=== PATIENT | male | born 1980 | race Caucasian/White ===

== ENCOUNTER 2022-08-01 11:03 | Outpatient (REF) | payer BC, SELFPAY ==
[2022-08-01 11:15] LABS: MANUAL DIFF FLAG NO
[2022-08-01 11:50] LABS: Basophils Percent Auto 0.6 % (0-2); Eosinophils Absolute Auto 0.1 X10*3/uL (0.0-0.4); Eosinophils Percent Auto 1.8 % (0-4); Hematocrit 44.9 % (42.0-52.0); Hemoglobin 15.7 g/dl (14.0-18.0); Imm Gran Abs Auto 0.01 X10*3/uL (0.00-0.03); Imm Gran Pct Auto 0.2 % (0.0-0.4); Lymphocytes Absolute Auto 2.3 X10*3/uL (1.2-4.9); Lymphocytes Percent Auto 35.9 % (20-40); Mean Corpuscular Hemoglobin 29.8 pg (27.0-33.0); Mean Corpuscular Volume 85.4 fL (80.0-98.0); Mean Platelet Volume 10.1 fL (9.4-12.4); Monocytes Absolute Auto 0.8 X10*3/uL (0.1-1.2); Monocytes Percent Auto 11.8 % (2-11); Neutrophils Absolute Auto 3.2 x10*3/uL (2.0-8.3); Neutrophils Percent Auto 49.7 % (45-73); Platelet Count 239 X10*3/uL (160-400); Red Blood Count 5.26 X10*6/uL (4.60-5.80); Red Cell Distribution Width 11.9 % (11.0-16.0); White Blood Count 6.5 X10*3/uL (4.8-10.8)
[2022-08-01 12:35] LABS: Alanine Aminotransferase 29 U/L (0-40); Albumin Level 4.1 g/dL (3.5-5.0); Alkaline Phosphatase 77 U/L (39-117); Anion Gap 13 (12-20); Aspartate Amino Transferase 22 U/L (5-37); Bilirubin Total 1.1 mg/dL (0.0-1.0); Blood Urea Nitrogen 12 mg/dL (9-16); Calcium 9.2 mg/dL (8.4-10.2); Carbon Dioxide 26 mmol/L (22-29); Chloride 105 mmol/L (96-108); Cholesterol 157 mg/dL; Estimated Glomerular Filt Rate > 60; Glucose Random 93 mg/dL (60-115); HDL Cholesterol 33 mg/dL; LDL Cholesterol Calculated 92 mg/dl; Potassium 4.3 mmol/L (3.3-5.1); Sodium 140 mmol/L (135-145); Total Protein 6.8 g/dL (6.5-8.0); Triglycerides 161 mg/dL
== END 2022-08-01 11:04 | disposition home or self-care (01) ==
LOC: HO.LAB 11:03
PROVIDERS: Visit Provider Physician Assistant
DX: Z00.00 Encounter for general adult medical examination without abnormal findings (principal)
CPT/HCPCS: 36415; 80053; 80061; 85025

== ENCOUNTER 2023-08-10 15:30 | Outpatient (REF) | payer BC, SELFPAY ==
[2023-08-10 19:22] LABS: Appearance Urine Clear; Color Urine Yellow; Glucose Urine UA Negative (Negative); Leukocyte Esterase Urine Small (1+) (Negative); Nitrite Urine Negative (Negative); PH 6.5 (5.0-9.0); UMIC TRIGGER UACC YES; Urine Blood Negative (Negative); Urine Ketones Negative (Negative); Urine Protein Negative (Neg-Trace)
[2023-08-10 19:32] LABS: Bacteria Urine None Seen (None Seen); Hyaline Casts Urine 0-2 /LPF (0-2); RBC Urine 0-2 /HPF (0-2); Squamous Epithelial Cell Urine 0-2 /HPF (0-2); UACC Culture Trigger YES; WBC Urine 0-5 /HPF (0-5)
== END 2023-08-10 15:31 | disposition home or self-care (01) ==
LOC: HO.MANLNP 15:30
PROVIDERS: Visit Provider Physician Assistant
DX: R30.0 Dysuria (principal)
CPT/HCPCS: 81001; 81003; 87086

== ENCOUNTER 2023-08-25 10:20 | Outpatient (REF) | payer BC, SELFPAY ==
[2023-08-25 10:39] LABS: MANUAL DIFF FLAG NO
[2023-08-25 11:23] LABS: Basophils Absolute Auto 0.1 X10*3/uL (0.0-0.2); Basophils Percent Auto 0.7 % (0-2); Eosinophils Absolute Auto 0.2 X10*3/uL (0.0-0.4); Eosinophils Percent Auto 1.9 % (0-4); Hematocrit 44.4 % (42.0-52.0); Hemoglobin 15.4 g/dl (14.0-18.0); Imm Gran Abs Auto 0.05 X10*3/uL (0.00-0.03); Imm Gran Pct Auto 0.5 % (0.0-0.4); Lymphocytes Absolute Auto 2.9 X10*3/uL (1.2-4.9); Lymphocytes Percent Auto 28.1 % (20-40); Mean Corpuscular HGB Conc 34.7 g/dl (31.0-36.0); Mean Corpuscular Hemoglobin 28.9 pg (27.0-33.0); Mean Corpuscular Volume 83.3 fL (80.0-98.0); Mean Platelet Volume 10.2 fL (9.4-12.4); Monocytes Absolute Auto 0.9 X10*3/uL (0.1-1.2); Monocytes Percent Auto 8.9 % (2-11); Neutrophils Absolute Auto 6.1 x10*3/uL (2.0-8.3); Neutrophils Percent Auto 59.9 % (45-73); Platelet Count 292 X10*3/uL (160-400); Red Blood Count 5.33 X10*6/uL (4.60-5.80); Red Cell Distribution Width 12.6 % (11.0-16.0); White Blood Count 10.2 X10*3/uL (4.8-10.8)
[2023-08-25 11:30] LABS: Estimated Average Glucose 94 mg/dL; Hemoglobin A1c % 4.9 % (<6.0)
[2023-08-25 12:02] LABS: Alanine Aminotransferase 22 U/L (0-40); Albumin Level 4.2 g/dL (3.5-5.0); Alkaline Phosphatase 83 U/L (39-117); Anion Gap 12 (12-20); Aspartate Amino Transferase 21 U/L (5-37); Bilirubin Total 1.1 mg/dL (0.0-1.0); Blood Urea Nitrogen 12 mg/dL (9-16); Calcium 9.2 mg/dL (8.4-10.2); Carbon Dioxide 31 mmol/L (22-29); Chloride 102 mmol/L (96-108); Cholesterol 168 mg/dL (<200); Estimated Glomerular Filt Rate > 60; Glucose Random 91 mg/dL (60-115); HDL Cholesterol 34 mg/dL (>40); LDL Cholesterol Calculated 100 mg/dL (<100); Potassium 3.4 mmol/L (3.3-5.1); Sodium 142 mmol/L (135-145); Total Protein 7.7 g/dL (6.5-8.0); Triglycerides 170 mg/dL (<150)
[2023-08-25 12:16] LABS: Vitamin D 25-OH Total 129.1 ng/mL (>30)
[2023-08-25 12:52] LABS: CT PCR NOT DETECTED (Not Detect.); NG PCR NOT DETECTED (Not Detect.)
[2023-08-27 04:01] LABS: Syphilis Screen Nonreactive (Nonreactive)
[2023-08-27 04:33] LABS: HBS Num1 9.22 mIU/mL (0-7.99); HBsAGNum1 0.33 S/CO (0.00-0.99); HIV AB/AG Nonreactive (Nonreactive); HIV Num 1 0.04 S/CO (0.00-0.99); Hepatitis A Antibody IgM 0.19 Index (0-0.79); Hepatitis B Core Antibody Nonreactive (Nonreactive); Hepatitis B Surface Antigen Negative (Negative); ~HepC Num1 0.16 S/CO (0.00-0.79); ~Hepatitis A Antibody IgM Nonreactive (Nonreactive); ~Hepatitis C Antibody Nonreactive (Nonreactive)
[2023-08-27 05:18] LABS: HBS Num2 10.21 mIU/mL (0-7.99); HBS Num3 9.61 mIU/mL (0-7.99); ~Hepatitis B Surface Antibody GRAYZONE (Nonreactive)
== END 2023-08-25 10:21 | disposition home or self-care (01) ==
LOC: HO.LAB 10:20
PROVIDERS: PCP Internal Medicine; Visit Provider Physician Assistant
DX: Z00.00 Encounter for general adult medical examination without abnormal findings (principal); Z11.4 Encounter for screening for human immunodeficiency virus [HIV]; Z13.6 Encounter for screening for cardiovascular disorders; Z20.2 Contact with and (suspected) exposure to infections with a predominantly sexual mode of transmission
CPT/HCPCS: 0353U; 36415; 80053; 80061; 82306; 83036; 85025; 86704; 86706; 86709; 86780; 86803; 87340; 87389

== ENCOUNTER 2023-10-08 20:24 | Emergency (ER) | payer BC, SELFPAY ==
--- NOTE | ~2023-10-08 | CT_ITS ---
EXAMINATION: CT head/brain wo IV con CLINICAL INFORMATION: Reason for Exam hypertenstion. headache COMPARISON: None. TECHNIQUE: Contiguous axial imaging was performed from the skull base to vertex without intravenous contrast. Sagittal and coronal reformatted images were obtained. This CT examination was performed using dose optimization techniques as appropriate, variously including the following: * Automated exposure control * Adjustment of mA and/or kV according to patient size (this includes techniques or standardized protocols for targeted exams where dose is matched to indication/reason for exam; i.e. extremities or head) Use of iterative reconstruction technique DLP: 784.34 mGy-cm mGy-cm FINDINGS: There is no evidence of acute intracranial hemorrhage. No mass-effect or ventricular shift is noted. No acute, territorial loss of cruz-white differentiation. Partially empty sella turcica. The ventricles and sulci are appropriate in size and configuration for the patient's stated age. No depressed calvarial fracture. Left maxillary sinus mucus retention cyst/polyp with mild to moderate polypoid mucosal thickening throughout the paranasal sinuses. The mastoid air cells are clear. Sebaceous/epidermal inclusion cyst overlying the left posterior calvarium. CT/CT head/brain wo IV con IMPRESSION: No acute intracranial hemorrhage, mass effect, or midline shift. Partially empty sella turcica.
[2023-10-08 21:12] VITALS: BP 177/109; PULSE 77; RESP 14; TEMP 36.3; O2SAT 97; BMI 39.3
--- NOTE | 2023-10-08 21:18 | ECG_ITS ---
Test Reason : HYPERTENSION Blood Pressure : / mmHG Vent. Rate : 069 BPM Atrial Rate : 069 BPM P-R Int : 150 ms QRS Dur : 094 ms QT Int : 400 ms P-R-T Axes : 024 008 039 degrees QTc Int : 428 ms Normal sinus rhythm Normal ECG No previous ECGs available Referred By: Generic ED Physician Electronically Signed By:Ran Connelly
[2023-10-08 21:34] LABS: MANUAL DIFF FLAG NO
[2023-10-08 21:37] LABS: Basophils Absolute Auto 0.1 X10*3/uL (0.0-0.2); Basophils Percent Auto 0.4 % (0-2); Eosinophils Absolute Auto 0.1 X10*3/uL (0.0-0.4); Eosinophils Percent Auto 0.5 % (0-4); Hematocrit 46.3 % (42.0-52.0); Hemoglobin 16.9 g/dl (14.0-18.0); Imm Gran Abs Auto 0.05 X10*3/uL (0.00-0.03); Imm Gran Pct Auto 0.4 % (0.0-0.4); Lymphocytes Percent Auto 15.1 % (20-40); Mean Corpuscular HGB Conc 36.5 g/dl (31.0-36.0); Mean Corpuscular Hemoglobin 29.9 pg (27.0-33.0); Mean Corpuscular Volume 81.9 fL (80.0-98.0); Mean Platelet Volume 10.1 fL (9.4-12.4); Monocytes Absolute Auto 0.8 X10*3/uL (0.1-1.2); Monocytes Percent Auto 6.3 % (2-11); Neutrophils Absolute Auto 10.4 x10*3/uL (2.0-8.3); Neutrophils Percent Auto 77.3 % (45-73); Platelet Count 270 X10*3/uL (160-400); Red Blood Count 5.65 X10*6/uL (4.60-5.80); Red Cell Distribution Width 12.6 % (11.0-16.0); White Blood Count 13.4 X10*3/uL (4.8-10.8)
[2023-10-08 21:53] LABS: Alanine Aminotransferase 24 U/L (0-40); Albumin Level 4.5 g/dL (3.5-5.0); Alkaline Phosphatase 89 U/L (39-117); Anion Gap 16 (12-20); Aspartate Amino Transferase 21 U/L (5-37); Blood Urea Nitrogen 12 mg/dL (9-16); Calcium 10.6 mg/dL (8.4-10.2); Carbon Dioxide 26 mmol/L (22-29); Chloride 100 mmol/L (96-108); Estimated Glomerular Filt Rate > 60; Glucose Random 117 mg/dL (60-115); Potassium 3.5 mmol/L (3.3-5.1); Sodium 138 mmol/L (135-145); Total Protein 8.1 g/dL (6.5-8.0)
--- NOTE | 2023-10-09 00:58 | ED.GENADULT ---
HPI - General Adult General Chief complaint: Headache Stated complaint: elevated bp 190/130, migraine Time Seen by Provider: 10/09/23 00:47 Source: patient Mode of arrival: ambulatory Limitations: no limitations History of Present Illness HPI narrative: 42-year-old male history of high blood pressure presents ED for headache with elevated blood pressure. Patient states primary care provider has had trouble the past couple months control in his high blood pressure. Patient states this morning he woke up with headache and blood pressure was systolic 230/130. Patient states his prior called him today his medications sent some new prescriptions. Patient's 2nd systolic blood pressure was 210 during the day. Before coming to the ED blood pressure systolic was 190. Related Data Allergies Allergy/AdvReac Type Severity Reaction Status Date / Time No Known Allergies Allergy Verified 10/08/23 21:16 Review of Systems Review of Systems: headache and hypertension Yes all other systems are reviewed and are negative [facility] Social History Social History (System 05/22/23 @ 11:29 by Kenzie Landers) Advance Directives: No Advance Directives Information Provided: No Do you have a plan to hurt others: No Plan Physical Exam ED Vital Signs: Vital Signs - 24 hr 10/08/23 21:12 10/09/23 01:01 10/09/23 02:31 Temperature 97.3 F Pulse Rate 77 72 66 Respiratory Rate 14 10 L 15 Blood Pressure 177/109 H 173/102 H 140/87 H Pulse Oximetry 97 96 98 Oxygen Delivery Method Room Air Room Air Room Air BMI result Body Mass Index 39.3 Const General: cooperative, healthy appearing, comfortable, no acute distress, well developed, alert and awake Orientation/consciousness: oriented to person, oriented to place, oriented to time and patient oriented x3 HENMT Head: Yes normal to inspection, Yes No palpable skull fracture present, Yes normocephalic and Yes atraumatic Eyes General: appearance normal, both eyes and all related structures Neck Neck: Yes normal visual inspection, Yes full ROM, Yes no lymphadenopathy, Yes no meningeal signs, Yes trachea midline, Yes supple, No anterior neck swelling and No tender Chest Chest palpation & inspection: normal inspection of the chest and normal palpation of entire chest wall Resp Effort & Inspection: normal respiratory effort and able to speak in complete sentences Auscultation: clear to auscultation bilaterally Cardio Jugular venous distension: no JVD Heart sounds: S1 normal heart sound present and S2 normal heart sound present GI Inspection: Yes normal to inspection Palpation (GI): Soft to palpation, not firm, nontender, no guarding and not rigid General: No CVA tenderness and Yes no CVA tenderness Back/Spine/Pelvis Back: no CVA tenderness, No CVA tenderness and No back tenderness Skin General skin exam: no rashes or lesions noted, elasticity normal and turgor normal Neuro General: oriented to person, oriented to place, oriented to time, patient oriented x3, gait normal, tone normal, moves all extremities, Normal light touch and pain sensation, no meningeal signs, no focal motor deficits, CN's II-XI intact bilaterally and normal sensation to monofilament NIH Stroke Scale Internal: Initial- Upon Arrival Level of Consciousness: Alert Level of Consciousness Questions: Answers both questions correctly Level of Consciousness Commands: Performs both tasks correctly Best Gaze: Normal Visual: No visual loss Facial Palsy: Normal Motor Arm (Right): No drift Motor Arm (Left): No drift Motor Leg (Right): No drift Motor Leg (Left): No drift Limb Ataxia: Absent Sensory: Normal Best Language: No aphasia Dysarthia: Normal Extinction and Inattention: No abnormality Score: 0 Medications Administered Discontinued Medications Generic Name Dose Route Start Last Admin Trade Name Freq PRN Reason Stop Dose Admin Acetaminophen 975 mg 10/09/23 00:55 10/09/23 01:05 Acetaminophen 325 Mg Tablet PO 10/09/23 00:56 975 mg ONCE ONE Administration Medical Decision Making Medical Decision Making MDM Narrative: 42 yold male presents to the ED for headache and elevated blood pressure. Negative for signs of stroke. Troponin added to labs. Head CT scan ordered. Will order repeat blood pressure 3:19am; CT scan negative for acute bleed or stroke. Blood pressure improved to 1 40/70 without any medications in the ED. Blood pressure improved during the day with new mediciations prescribed by PCP. Headache resolved with Tylenol. Blood pressure was improving during the day due to new medications prior by primary care provider. Patient informed to continue being compliant with primary care medications for high blood pressure. Patient informed to record his blood pressure 3 times a day. Patient's troponin negative after symptoms over 10 hours. Patient educated time and informed to return to ED if he has them Differential Diagnosis Differential Diagnoses: The differential diagnosis associated with the presentation includes (Hypertensive headache) Admission/Observation Consideration of admission/observation: Escalation of care including admission/observation considered Lab Data [facility] Lab Attestation statement: I reviewed the patient's lab results. 10/08/23 21:27 10/08/23 21:27 Labs: Lab Results 10/08/23 10/09/23 Range/Units 21:27 01:04 WBC 13.4 H (4.8-10.8) X10*3/uL RBC 5.65 (4.60-5.80) X10*6/uL Hgb 16.9 (14.0-18.0) g/dl Hct 46.3 (42.0-52.0) % MCV 81.9 (80.0-98.0) fL MCH 29.9 (27.0-33.0) pg MCHC 36.5 H (31.0-36.0) g/dl RDW 12.6 (11.0-16.0) % Plt Count 270 (160-400) X10*3/uL MPV 10.1 (9.4-12.4) fL Immature Gran % (Auto) 0.4 (0.0-0.4) % Neut % (Auto) 77.3 H (45-73) % Lymph % (Auto) 15.1 L (20-40) % [place] % (Auto) 6.3 (2-11) % Eos % (Auto) 0.5 (0-4) % Baso % (Auto) 0.4 (0-2) % Lymph # (Auto) 2.0 (1.2-4.9) X10*3/uL [place] # (Auto) 0.8 (0.1-1.2) X10*3/uL Eos # (Auto) 0.1 (0.0-0.4) X10*3/uL Baso # (Auto) 0.1 (0.0-0.2) X10*3/uL Abs Immat Gran (auto) 0.05 H (0.00-0.03) X10*3/uL Absolute Neuts (auto) 10.4 H (2.0-8.3) x10*3/uL Absolute Nucleated RBC 0.000 (0.0-0.012) X10*3/uL Nucleated RBC % (auto) 0.0 (0.0-0.2) /100WBC Sodium 138 (135-145) mmol/L Potassium 3.5 (3.3-5.1) mmol/L Chloride 100 (96-108) mmol/L Carbon Dioxide 26 (22-29) mmol/L Anion Gap 16 (12-20) BUN 12 (9-16) mg/dL Creatinine 1.11 (0.5-1.4) mg/dL Estim Creat Clear Calc 117.0 Estimated GFR > 60 Random Glucose 117 H (60-115) mg/dL Calcium 10.6 H D (8.4-10.2) mg/dL Total Bilirubin 1.0 (0.0-1.0) mg/dL AST 21 (5-37) U/L ALT 24 (0-40) U/L Alkaline Phosphatase 89 (39-117) U/L Troponin I High Sens < 2.7 (<3.5-35.0) ng/L Total Protein 8.1 H (6.5-8.0) g/dL Albumin 4.5 (3.5-5.0) g/dL Independent Interpretation I performed an independent interpretation of an: EKG (normal sinus rhythm. negative stEMI) and CT Scan Radiology Impression Discussion of test interpretation with radiology: I have reviewed the radiologist's reading. Independent Historian Clinical information obtained from an independent historian. History obtained from or confirmed by: Other (patient) External Record Review External record reviewed: Other (prior vistis) Discharge Plan Discharge Clinical Impression: Headache, Hypertension Patient Disposition: Home, Self-Care Instructions: Hypertension (ED) Additional Instructions: Return to the ED immediately for any headache, loss of vision, slurred speech, facial droop, paralysis of extremities, chest pain, shortness of breath, dizzinness, abdominal pain, or any other concerning symptoms. Recommend being compliant with the hypertensive medication that was prescribed to you by primary care provider today. Recommend recording you're blood pressure 3 times a day dysuria primary care provider. Stand Alone Forms: Work/School Release Interventions: ED Discharge Assessment Last Done: 10/09/23 04:12 Discharge Date/Time: 10/09/23 04:13 Print Language: Macedonian
[2023-10-09 01:01] VITALS: BP 173/102; PULSE 72; RESP 10; O2SAT 96
[2023-10-09] MEDS: Acetaminophen 325 MG TABLET 975 MG PO (01:05)
[2023-10-09 01:35] LABS: Troponin-I High Sensitivity < 2.7 ng/L (<3.5-35.0)
[2023-10-09 02:31] VITALS: BP 140/87; PULSE 66; RESP 15; O2SAT 98
[2023-10-09 04:12] VITALS: BP 140/87; PULSE 66; RESP 15; TEMP 36.9; O2SAT 98
== END 2023-10-09 04:13 | disposition home or self-care (01) ==
PROVIDERS: Physician Assistant; Emergency Provider Emergency Medicine; PCP Internal Medicine
DX: R51.9 Headache, unspecified (principal); I10 Essential (primary) hypertension; Z79.899 Other long term (current) drug therapy
CPT/HCPCS: 36415; 70450; 80053; 84484; 85025; 93005; 99284

== ENCOUNTER → 2023-10-08 21:18 | Outpatient (BNV) | payer BC, SELFPAY | PROVIDERS: Emergency Provider Emergency Medicine; PCP Internal Medicine; Visit Provider Internal Medicine Cardiovascular Disease | DX: I10 Essential (primary) hypertension (principal) | CPT/HCPCS: 93010 ==

== ENCOUNTER 2023-10-17 15:51 | Emergency (ER) | payer BC, SELFPAY ==
--- NOTE | ~2023-10-17 | XR_ITS ---
EXAMINATION: XR CHEST CLINICAL INFORMATION: Hypertension COMPARISON: None available. TECHNIQUE: 2 views of the chest were obtained. FINDINGS: No significant abnormality is noted involving the heart, lungs, mediastinum, bony thorax or soft tissues. XR/XR chest 2V IMPRESSION: Unremarkable examination.
[2023-10-17 16:09] VITALS: BP 189/103; PULSE 89; RESP 16; TEMP 36.8; O2SAT 96; BMI 39.7
--- NOTE | 2023-10-17 16:10 | ED_ITS ---
HPI - General Adult General Chief complaint: Recheck/Abnormal Lab/Rx Stated complaint: high bp, ref by pcp Time Seen by Provider: 10/18/23 00:11 Source: patient Mode of arrival: ambulatory Limitations: no limitations History of Present Illness HPI narrative: Patient comes to the emergency room complaining of high blood pressure. Patient states that he has had multiple medications. Patient states that he used to take losartan full-dose until it stopped working. Then the patient's primary care physician tried hydrochlorothiazide, then amlodipine, labetalol, all without significant effect. The labetalol was working but patient could not tolerate the side effects. Patient states that now he is on spironolactone daily and today he started taking prazosin 1 mg daily. Laying a mild headache for which she took Tylenol. Patient states he had a CT scan done about a week ago for the same reason, headache and hypertension. Related Data Previous Rx's ?Medication ?Instructions ?Recorded prazosin 1 mg capsule 1 mg PO TID 4 weeks #84 caps 10/18/23 Allergies Allergy/AdvReac Type Severity Reaction Status Date / Time No Known Allergies Allergy Verified 10/17/23 16:11 Review of Systems 2 Review of Systems: Constitutional : No Weight loss, No Fever, No Chills, No Night Sweats, No Fatigue, No Malaise ENT/Mouth : No Hearing loss, No Ear Pain, No Nasal Congestion, No Sinus Pain, No Hoarseness, No sore throat, No Rhinorrhea, No Swallowing Difficulty Eyes: No Eye Pain, No Swelling, No Redness, No Foreign Body, No Discharge, No Vision Changes Cardiovascular : No Chest Pain, No SOB, No Dyspnea on Exertion, No Orthopnea, No Edema, No Palpitations, complaining of high blood pressure Respiratory : No Cough, No Sputum, No Wheezing, No Smoke Exposure, No Dyspnea Gastrointestinal : No Nausea, No Vomiting, No Diarrhea, No Constipation, No abdominal Pain, No Hematochezia, No Melena Genitourinary : no irregular bleeding, No Dysuria, No Urinary Frequency, No Hematuria, No Urinary Incontinence, No Urgency, No Flank Pain, No Urinary Flow Changes, No Hesitancy Musculoskeletal : No joint pain, No Myalgias, No Joint Swelling Skin : No Skin Lesions, No rash Neuro : No Weakness, No Numbness, No Paresthesias, No Loss of Consciousness, No Dizziness, mild Headache Psych : No Anxiety/Panic, No Depression, No SI/HI/AH/VH, No Social Issues, Heme/Lymph: No Bruising, No Bleeding,No Lymphadenopathy Endocrine : No Polyuria, No Polydipsia, No Temperature Intolerance [facility] Past Medical History Medical History ADD (attention deficit disorder) Hypertension Social History Social History (System 05/22/23 @ 11:29 by Kenzie Landers) Alcohol intake: never Smoked in Last 30 Days: No Use of substances other than those prescribed or required for medical reasons: No Advance Directives: No Advance Directives Information Provided: No Do you have a plan to hurt others: No Plan Physical Exam ED Vital Signs: Vital Signs - 24 hr 10/17/23 16:09 10/17/23 21:46 10/17/23 22:41 Temperature 98.3 F 97.3 F 98.9 F Pulse Rate 89 73 71 Respiratory Rate 16 18 16 Blood Pressure 189/103 H 197/109 H 184/104 H Pulse Oximetry 96 98 96 Oxygen Delivery Method Room Air Room Air Room Air 10/18/23 00:13 10/18/23 00:47 10/18/23 01:51 Temperature 98.1 F 98.2 F Pulse Rate 67 67 74 Respiratory Rate 16 16 Blood Pressure 167/99 H 167/99 H 168/97 H Pulse Oximetry 99 98 Oxygen Delivery Method Room Air 10/18/23 02:27 10/18/23 02:48 10/18/23 03:38 Temperature 98.8 F Pulse Rate 70 74 Respiratory Rate 16 Blood Pressure 168/97 H 179/96 H 158/91 H Pulse Oximetry 97 Oxygen Delivery Method Room Air BMI result Body Mass Index 39.7 Const Other: Appearance: Alert. Oriented X3. No acute distress. Eyes: Pupils equal, round and reactive to light. ENT: Pharynx normal. Neck: Normal inspection. Neck supple. No lymph nodes noted. No crepitus CVS: Normal heart rate and rhythm. Pulses normal. Normal S1 and S2 Respiratory: No respiratory distress. Breath sounds normal. No Wheezing. No rales Abdomen: Soft and nontender. No rigidity. No distention. Skin: Skin warm and dry. Normal skin color. Normal skin turgor. Extremities: No lower extremity edema. No Lacerations. No Rash Neuro: Oriented X 3. No motor deficit. No sensory deficit. Moving all extremities. No slurred speech. CN 2 through 12 grossly intact Psych: calm, cooperative, normal affect Course Course Course Narrative: This is a rapid medical exam performed by Robert Davis NP: Additional HPI, ROS, PE not included below will be deferred to primary provider. Patient is a 42-year-old male with history of HTN presenting to ED from PCP office for persistent HTN. Started on prazosin today, BP remained elevated. BP here 189/103. Complains of headache, denies changes in vision or chest pain. Plan: EKG, labs, CXR Medications Administered Discontinued Medications Generic Name Dose Route Start Last Admin Trade Name Freq PRN Reason Stop Dose Admin Acetaminophen 650 mg 10/17/23 22:21 10/17/23 22:24 Acetaminophen 325 Mg Tablet PO 10/17/23 22:22 650 mg ONCE ONE Administration Diltiazem HCl 60 mg 10/18/23 00:23 10/18/23 00:47 Diltiazem Hcl 60 Mg Tablet PO 10/18/23 00:24 60 mg ONCE ONE Administration Protocol Hydralazine HCl 50 mg 10/18/23 01:57 10/18/23 02:27 Hydralazine Hcl 50 Mg Tablet PO 10/18/23 01:58 50 mg ONCE ONE Administration Protocol Nitroglycerin 1 inch 10/18/23 02:51 10/18/23 03:00 Nitroglycerin 2 % Oint 1 Gm Packet TRANSDERMA 10/18/23 02:52 1 inch ONCE ONE Administration Medical Decision Making Medical Decision Making [facility] Narrative: -my interpretation of EKG: Normal sinus rhythm, heart rate 89, no ST segment depression or elevation, no T-wave inversion, QTC 442 -my interpretation of labs: Normal hematology, normal chemistry, troponins x2 negative. -I reviewed patient's CT scan from 1 week ago, patient's CT scan was negative for intracranial bleed -patient's blood pressure 189/103, then 167/99. Patient received 1 dose of p.o. Cardizem -discussed with the patient that prazosin taking once they can cause rebound hypertension, instructed to increase prazosin to 3 times a day, 1 mg each dose -I consider repeating a CT scan. However, patient states that he took Tylenol and feels better patient has no neurological deficits -patient states that his primary care physician ordered a renal ultrasound to rule out renal artery stenosis, exam pending -patient's blood pressure did not improve much, patient needed an additional patch of nitroglycerin 1 in -blood pressure was slowly in the 170s, patient received 1 dose of hydralazine 50 mg p.o.. -blood pressure check 158/91. Overall patient feeling better, no chest pain or shortness of breath. Differential Diagnosis Differential Diagnoses: The differential diagnosis associated with the presentation includes (Hypertensive urgency, hypertensive emergency, tension headache) Admission/Observation Consideration of admission/observation: Escalation of care including admission/observation considered (Can patient's symptoms and high blood pressure, admission/observation considered) Lab Data MDM Lab Attestation statement: I reviewed the patient's lab results. 10/17/23 16:40 10/17/23 16:40 Labs: Lab Results 10/17/23 10/17/23 Range/Units 16:40 22:15 WBC 7.8 (4.8-10.8) X10*3/uL RBC 5.31 (4.60-5.80) X10*6/uL Hgb 15.7 (14.0-18.0) g/dl Hct 43.9 (42.0-52.0) % MCV 82.7 (80.0-98.0) fL MCH 29.6 (27.0-33.0) pg MCHC 35.8 (31.0-36.0) g/dl RDW 12.6 (11.0-16.0) % Plt Count 245 (160-400) X10*3/uL MPV 10.0 (9.4-12.4) fL Immature Gran % (Auto) 0.3 (0.0-0.4) % Neut % (Auto) 57.2 (45-73) % Lymph % (Auto) 25.3 (20-40) % [place] % (Auto) 12.3 H (2-11) % Eos % (Auto) 4.1 H (0-4) % Baso % (Auto) 0.8 (0-2) % Lymph # (Auto) 2.0 (1.2-4.9) X10*3/uL [place] # (Auto) 1.0 (0.1-1.2) X10*3/uL Eos # (Auto) 0.3 (0.0-0.4) X10*3/uL Baso # (Auto) 0.1 (0.0-0.2) X10*3/uL Abs Immat Gran (auto) 0.02 (0.00-0.03) X10*3/uL Absolute Neuts (auto) 4.5 (2.0-8.3) x10*3/uL Absolute Nucleated RBC 0.000 (0.0-0.012) X10*3/uL Nucleated RBC % (auto) 0.0 (0.0-0.2) /100WBC PT 12.2 (11.1-13.3) SEC INR 1.0 (0.9-1.1) Sodium 139 (135-145) mmol/L Potassium 3.6 (3.3-5.1) mmol/L Chloride 104 (96-108) mmol/L Carbon Dioxide 24 (22-29) mmol/L Anion Gap 15 (12-20) BUN 12 (9-16) mg/dL Creatinine 1.15 (0.5-1.4) mg/dL Estim Creat Clear Calc 113.5 Estimated GFR > 60 Random Glucose 89 (60-115) mg/dL Calcium 9.6 D (8.4-10.2) mg/dL Total Bilirubin 0.7 (0.0-1.0) mg/dL AST 20 (5-37) U/L ALT 24 (0-40) U/L Alkaline Phosphatase 85 (39-117) U/L Troponin I High Sens < 2.7 < 2.7 (<3.5-35.0) ng/L Total Protein 7.7 (6.5-8.0) g/dL Albumin 4.3 (3.5-5.0) g/dL Independent Interpretation I performed an independent interpretation of an: EKG and Plain X-Ray Radiology Impression Discussion of test interpretation with radiology: I have reviewed the radiologist's reading. Radiologist Impression: FINDINGS: No significant abnormality is noted involving the heart, lungs, mediastinum, bony thorax or soft tissues. XR/XR chest 2V IMPRESSION: Unremarkable examination. Independent Historian Clinical information obtained from an independent historian. History obtained from or confirmed by: Spouse Chronic Conditions Patient?s care impacted by: Hypertension Critical Care Time Critical Care Time Critical Care Time: Yes Total Critical Care Time: 60 Attestation: I have personally provided critical care time. Time includes review of lab data, radiology results, discussion with consultants, and monitoring for potential decompensation. Intervention performed as documented. Discharge Plan Discharge Clinical Impression: Hypertension Patient Disposition: Home, Self-Care Instructions: Hypertension (ED) Additional Instructions: Please continue taking spironolactone as prescribed and take prazosin 1 mg 3 times a day. Please follow-up with your primary care physician tomorrow. If you have any worsening or new symptoms, please return to the emergency room or call 911 Prescriptions: New prazosin 1 mg capsule 1 mg PO TID 28 Days Qty: 84 0RF Referrals: Serge Moran MD [Primary Care Provider] - Print Language: Portuguese
--- NOTE | 2023-10-17 16:12 | ECG_ITS ---
Test Reason : hypertention Blood Pressure : / mmHG Vent. Rate : 089 BPM Atrial Rate : 089 BPM P-R Int : 144 ms QRS Dur : 092 ms QT Int : 364 ms P-R-T Axes : 037 014 040 degrees QTc Int : 442 ms Normal sinus rhythm Normal ECG When compared with ECG of 08-OCT-2023 21:23, No significant change was found Referred By: Melba Davis Electronically Signed By:JENNY ATKINS MD
[2023-10-17 16:45] LABS: MANUAL DIFF FLAG NO
[2023-10-17 16:52] LABS: Basophils Absolute Auto 0.1 X10*3/uL (0.0-0.2); Basophils Percent Auto 0.8 % (0-2); Eosinophils Absolute Auto 0.3 X10*3/uL (0.0-0.4); Eosinophils Percent Auto 4.1 % (0-4); Hematocrit 43.9 % (42.0-52.0); Hemoglobin 15.7 g/dl (14.0-18.0); Imm Gran Abs Auto 0.02 X10*3/uL (0.00-0.03); Imm Gran Pct Auto 0.3 % (0.0-0.4); Lymphocytes Percent Auto 25.3 % (20-40); Mean Corpuscular HGB Conc 35.8 g/dl (31.0-36.0); Mean Corpuscular Hemoglobin 29.6 pg (27.0-33.0); Mean Corpuscular Volume 82.7 fL (80.0-98.0); Monocytes Percent Auto 12.3 % (2-11); Neutrophils Absolute Auto 4.5 x10*3/uL (2.0-8.3); Neutrophils Percent Auto 57.2 % (45-73); Platelet Count 245 X10*3/uL (160-400); Red Blood Count 5.31 X10*6/uL (4.60-5.80); Red Cell Distribution Width 12.6 % (11.0-16.0); White Blood Count 7.8 X10*3/uL (4.8-10.8)
[2023-10-17 16:54] LABS: Prothrombin Time 12.2 SEC (11.1-13.3)
[2023-10-17 17:04] LABS: Alanine Aminotransferase 24 U/L (0-40); Albumin Level 4.3 g/dL (3.5-5.0); Alkaline Phosphatase 85 U/L (39-117); Anion Gap 15 (12-20); Aspartate Amino Transferase 20 U/L (5-37); Bilirubin Total 0.7 mg/dL (0.0-1.0); Blood Urea Nitrogen 12 mg/dL (9-16); Calcium 9.6 mg/dL (8.4-10.2); Carbon Dioxide 24 mmol/L (22-29); Chloride 104 mmol/L (96-108); Creatinine Clr Calc Pharmacy 113.5; Estimated Glomerular Filt Rate > 60; Glucose Random 89 mg/dL (60-115); Potassium 3.6 mmol/L (3.3-5.1); Sodium 139 mmol/L (135-145); Total Protein 7.7 g/dL (6.5-8.0)
[2023-10-17 17:14] LABS: Troponin-I High Sensitivity < 2.7 ng/L (<3.5-35.0)
[2023-10-17 21:46] VITALS: BP 197/109; PULSE 73; RESP 18; TEMP 36.3; O2SAT 98
[2023-10-17] MEDS: Acetaminophen 325 MG TABLET 650 MG PO (22:24)
[2023-10-17 22:41] VITALS: BP 184/104; PULSE 71; RESP 16; TEMP 37.2; O2SAT 96
[2023-10-17 22:41] LABS: Troponin-I High Sensitivity < 2.7 ng/L (<3.5-35.0)
[2023-10-18] VITALS (8 sets, daily range): BP systolic 158–179; BP diastolic 82–99; PULSE 67–77; RESP 16; TEMP 36.7–37.2; O2SAT 95–99
--- NOTE | 2023-10-18 00:38 | PC.NURSE ---
electrical plumbing supervisor called for cardizem 60 mg po
[2023-10-18] MEDS: dilTIAZem HCL 60 MG TABLET PO (00:47)
[2023-10-18] MEDS: hydrALAZINE HCl 50 MG TABLET PO (02:27)
[2023-10-18] MEDS: Nitroglycerin 2 % Oint 1 GM Packet 1 INCH TRANSDERMA (03:00)
== END 2023-10-18 04:32 | disposition home or self-care (01) ==
PROVIDERS: Registered Nurse Emergency; Emergency Provider Emergency Medicine; PCP Internal Medicine
DX: I10 Essential (primary) hypertension (principal); Z79.899 Other long term (current) drug therapy
CPT/HCPCS: 36415; 71046; 80053; 84484; 85025; 85610; 93005; 99283; 99285

== ENCOUNTER → 2023-10-17 16:12 | Outpatient (BNV) | payer BC, SELFPAY | PROVIDERS: Emergency Provider Emergency Medicine; PCP Internal Medicine; Visit Provider Internal Medicine Cardiovascular Disease | DX: I10 Essential (primary) hypertension (principal) | CPT/HCPCS: 93010 ==

== ENCOUNTER 2023-11-21 07:54 | Outpatient (REF) | payer BC, SELFPAY ==
--- NOTE | ~2023-11-21 | US_ITS ---
EXAMINATION: ULTRASOUND RENAL WITH DOPPLER CLINICAL INFORMATION: Hypertension. COMPARISON: None. TECHNIQUE: Real-time grayscale, color Doppler, and duplex Doppler evaluation of the kidneys and renal vasculature was performed. Exam considered mildly limited by body habitus by the performing talent acquisition sourcer. FINDINGS: RENAL MEASUREMENTS: Right: 11.8 x 6.4 x 4.3 cm (Sag x AP x TV) Left: 12.6 x 6.4 x 4.3 cm (Sag x AP x TV) The renal parenchyma appears normal. No hydronephrosis or nephrolithiasis. DOPPLER INTERROGATION: AORTA: Mid aorta: 145 cm/sec RIGHT MAIN RENAL ARTERY: Proximal: 107 cm/sec Mid: 143 cm/sec Distal: 91 cm/sec LEFT MAIN RENAL ARTERY: Proximal: 56 cm/sec Mid: 74 cm/sec Distal: 41 cm/sec RENAL-AORTIC RATIO (RAR): Right: Not calculated due to mid aortic velocity outside of range 40-100 cm/s making RAR inaccurate. Left: Not calculated due to mid aortic velocity outside of range 40-100 cm/s making RAR inaccurate. SEGMENTAL RESISTIVE INDICES: Right: 0.58-0.68 Left: 0.63-0.72 RENAL VEINS: Right: Patent with normal waveform. Left: Patent with normal waveform. US/US renal BI IMPRESSION: Mildly limited examination due to body habitus. No evidence of hemodynamically significant renal artery stenosis. Normal-appearing kidneys.
--- NOTE | ~2023-11-21 | US_ITS ---
EXAMINATION: ULTRASOUND RENAL WITH DOPPLER CLINICAL INFORMATION: Hypertension. COMPARISON: None. TECHNIQUE: Real-time grayscale, color Doppler, and duplex Doppler evaluation of the kidneys and renal vasculature was performed. Exam considered mildly limited by body habitus by the performing carcass trimmer. FINDINGS: RENAL MEASUREMENTS: Right: 11.8 x 6.4 x 4.3 cm (Sag x AP x TV) Left: 12.6 x 6.4 x 4.3 cm (Sag x AP x TV) The renal parenchyma appears normal. No hydronephrosis or nephrolithiasis. DOPPLER INTERROGATION: AORTA: Mid aorta: 145 cm/sec RIGHT MAIN RENAL ARTERY: Proximal: 107 cm/sec Mid: 143 cm/sec Distal: 91 cm/sec LEFT MAIN RENAL ARTERY: Proximal: 56 cm/sec Mid: 74 cm/sec Distal: 41 cm/sec RENAL-AORTIC RATIO (RAR): Right: Not calculated due to mid aortic velocity outside of range 40-100 cm/s making RAR inaccurate. Left: Not calculated due to mid aortic velocity outside of range 40-100 cm/s making RAR inaccurate. SEGMENTAL RESISTIVE INDICES: Right: 0.58-0.68 Left: 0.63-0.72 RENAL VEINS: Right: Patent with normal waveform. Left: Patent with normal waveform. US/US renal doppler IMPRESSION: Mildly limited examination due to body habitus. No evidence of hemodynamically significant renal artery stenosis. Normal-appearing kidneys.
== END 2023-11-21 07:55 | disposition home or self-care (01) ==
LOC: HO.US 07:54
PROVIDERS: PCP Internal Medicine; Visit Provider Physician Assistant
DX: I10 Essential (primary) hypertension (principal); I1A.0 Resistant hypertension
CPT/HCPCS: 76775; 93975

== ENCOUNTER 2024-04-30 10:02 | Outpatient (REF) | payer BC, SELFPAY ==
[2024-04-30 11:00] LABS: Basophils Percent Auto 0.3 % (0-2); Eosinophils Absolute Auto 0.1 X10*3/uL (0.0-0.4); Eosinophils Percent Auto 1.4 % (0-4); Hematocrit 44.5 % (42.0-52.0); Imm Gran Abs Auto 0.03 X10*3/uL (0.00-0.03); Imm Gran Pct Auto 0.3 % (0.0-0.4); Lymphocytes Absolute Auto 4.2 X10*3/uL (1.2-4.9); Lymphocytes Percent Auto 44.3 % (20-40); MANUAL DIFF FLAG NO; Mean Corpuscular Hemoglobin 30.1 pg (27.0-33.0); Mean Corpuscular Volume 83.8 fL (80.0-98.0); Mean Platelet Volume 9.9 fL (9.4-12.4); Monocytes Percent Auto 10.1 % (2-11); Neutrophils Absolute Auto 4.1 x10*3/uL (2.0-8.3); Neutrophils Percent Auto 43.6 % (45-73); Platelet Count 232 X10*3/uL (160-400); Red Blood Count 5.31 X10*6/uL (4.60-5.80); Red Cell Distribution Width 12.5 % (11.0-16.0); White Blood Count 9.4 X10*3/uL (4.8-10.8)
[2024-04-30 11:48] LABS: Alanine Aminotransferase 23 U/L (0-40); Albumin Level 4.1 g/dL (3.5-5.0); Alkaline Phosphatase 110 U/L (39-117); Aspartate Amino Transferase 23 U/L (5-37); Bilirubin Total 0.7 mg/dL (0.0-1.0); Blood Urea Nitrogen 13 mg/dL (9-16); Estimated Glomerular Filt Rate > 60; Glucose Random 103 mg/dL (60-115); Iron 50 mcg/dL (45-160); Percent Iron Saturation 18 % (15-50); Total Iron Binding Capacity 281 mcg/dL (228-428); Total Protein 7.2 g/dL (6.5-8.0); Unsaturated Iron Binding 231 ug/dL
[2024-04-30 11:53] LABS: Free T4 (Free Thyroxine) 1.11 ng/dL (0.71-1.85); Thyroid Stimulating Hormone 1.74 uIU/mL (0.32-4.0); Vitamin D 25-OH Total 66.5 ng/mL (>30)
[2024-04-30 12:05] LABS: Folate 14.5 ng/mL (> or = 4.0); Vitamin B12 426 pg/mL (200-900)
[2024-04-30 12:12] LABS: Anion Gap 15 (12-20); Carbon Dioxide 28 mmol/L (22-29); Chloride 101 mmol/L (96-108); Potassium 2.8 mmol/L (3.3-5.1); Sodium 141 mmol/L (135-145)
== END 2024-04-30 10:03 | disposition home or self-care (01) ==
LOC: HO.LAB 10:02
PROVIDERS: PCP Internal Medicine; Visit Provider Physician Assistant
DX: R53.83 Other fatigue (principal)
CPT/HCPCS: 36415; 80053; 82306; 82607; 82746; 83540; 84439; 84443; 85025

== ENCOUNTER 2024-05-07 15:12 | Outpatient (REF) | payer BC, SELFPAY ==
[2024-05-07 17:31] LABS: Alanine Aminotransferase 24 U/L (0-40); Albumin Level 4.3 g/dL (3.5-5.0); Anion Gap 14 (12-20); Aspartate Amino Transferase 27 U/L (5-37); Bilirubin Total 0.8 mg/dL (0.0-1.0); Blood Urea Nitrogen 13 mg/dL (9-16); Calcium 9.7 mg/dL (8.4-10.2); Carbon Dioxide 29 mmol/L (22-29); Chloride 102 mmol/L (96-108); Estimated Glomerular Filt Rate > 60; Glucose Random 71 mg/dL (60-115); Potassium 3.2 mmol/L (3.3-5.1); Sodium 142 mmol/L (135-145); Total Protein 7.5 g/dL (6.5-8.0)
[2024-05-07 17:41] LABS: Alkaline Phosphatase 80 U/L (39-117)
--- OUTSIDE RECORDS SUMMARY | 2024-05-13 20:58 | XMS_ITS | Data Portability ---
Author Organization [facility] Address [address] [place] [id number] Assessment Encounter Date Assessment Date Assessment LastModified by Organization Details LastModified Time 02/11/2024 02/11/2024 Patient agreed and verbally consents to this audio and video Telehealth appt via a secure platform [email or web address] Not available 02/11/2024 10:46:13 04/21/2024 04/21/2024 Patient agreed and verbally consents to this audio and video Telehealth appt via a secure platform [email or web address] Not available 04/21/2024 16:24:12 05/07/2024 05/07/2024 Patient agreed and verbally consents to this audio and video Telehealth appt via a secure platform [email or web address] Not available 05/07/2024 10:29:17 Plan of Treatment Reminders Order Date Submit Date Provider Last Modified By Organization Details Last Modified Time Details Appointments None recorded. Lab vitamin D, 25-hydroxy , total, serum 2023 [facility], [address] [place] [address], [address], 08:46:45 vitamin B12 + folate, serum or blood 2023 024 [facility], [address] [place] [address], [address], 08:46:45 iron + TIBC + ferritin, serum 2023 [facility], [address] [place] [address], [address], 4 16:19:58 CMP, serum or plasma 2023 [facility], [address] [place] [address], [address], 4 08:46:45 CBC w/ auto diff 2023 [facility], [address] [place] [address], [address], 4 16:19:59 TSH + free T4, serum 2023 [facility], [address] [place] [address], [address], 4 08:46:45 CMP, serum or plasma 2023 [facility], [address] [place] [address], [address], 4 11:39:49 Referral None recorded. Procedures None recorded. Surgeries None recorded. Imaging None recorded. Medication Orders bupropion HCl SR 100 mg tablet,12 hr sustained- release 2023 [facility] #[id number], [address] [place], [address], 4 10:40:57 tadalafil 20 mg tablet 2023 024 [facility] #[id number], [address] [place], [address], 4 10:46:32 Trintellix 5 mg tablet 2023 024 [facility] #[id number], [address] [place], [address], 4 16:12:11 dextroamph etamine-am phetamine 10 mg tablet 2023 [facility] #[id number], [address] [place], [address], 16:17:34 prazosin 1 mg capsule 2023 [facility] #[id number], [address] [place], [address], 4 10:32:27 dextroamph etamine-am phetamine 10 mg tablet 2023 [facility] #[id number], [address] [place], [address], 10:32:28 Patient TargetsNo targets recorded. Patient InstructionsNo instructions recorded. Reason for Referral None Reported. Results Created Date Observation Date Name Description Value Unit Range Abnormal Flag Note LastModifiedBy Organization Detail LastModifiedTime 10/09/1910/09/2023 CT, head + brain , w/o contr ast No observ ation record ed. [email or web address] [facility] (Medical Records) [address] [place], [address], 10/09/2023 11:57:33 10/17/19 24 10/17/2023 XR, chest , 2 view No observ ation record ed. [facility] (Medical Records) [address] [place], [address], 10/23/2023 16:38:08 12/10/19 24 11/21/2023 US, renal No observ ation record ed. [facility] (Medical Records) [address] [place], [address], 01/07/2024 11:05:59 12/10/19 24 11/21/2023 US, renal arter y No observ ation record ed. [facility] (Medical Records) [address] [place], [address], 01/07/2024 11:05:59 Result Notes None recorded. 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, 1994 Not Available [facility] 3 14:13:30 Varicella 30601886 Active 2017 Not Available [facility] 3 14:13:30 Migraine 42975524 Active 2017 Not Available [facility] 3 14:13:30 Exercise- induced asthma 55493523 Active 2017 Not Available [facility] 3 14:13:30 Seasonal affective disorder 873777140 Active 2017 Not Available [facility] 3 14:13:30 Attention deficit hyperacti vity disorder 838874242 Active 2017 Not Available [facility] 3 14:13:31 Disorder of vision 52682442 Active 2017 corrected vision Not Available [facility] 3 14:13:31 Anxiety 62154050 Active 2017 Flight Not Available [facility] 3 14:13:31 Impaired fasting glycemia 195483141 Active 2017 Not Available [facility] 3 14:13:31 Essential hypertens ion 92731234 Active 2017 Not Available [facility] 3 14:13:31 Hyperlipi demia 40760614 Active 2017 Not Available [facility] 3 14:13:31 Sleep apnea 05321326 Active 2017 Not Available [facility] 3 14:13:31 Kidney stone 79762371 Active 2021 Not Available [facility] 3 14:13:31 Impetigo 84704992 Active 2022 Not Available [facility] 3 14:13:31 Hypertens lara urgency 148352722 Active 2022 Not Available [facility] 3 14:13:31 Dysuria 48192343 Active 2023 MALIK CRA[address]ORD [address], [place], [address] , [facility] 4 15:37:51 Agoraphob ia 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 Active 2023 MALIK CRAWFORD [address], [place], [address] , [facility] 4 15:56:51 Erectile dysfuncti on 153262146 Active 2023 MALIK CRAWFORD [address], [place], [address] , [facility] 4 15:58:57 Hypertens lara emergency 54823818618 9104 Active 2023 MALIK CRAWFORD [address], [place], [address] , [facility] 4 09:49:44 Resistant hypertens lara disorder 83109222118 4109 Active 2023 MALIK CRAWFORD [address], [place], [address] , [facility] 4 11:20:24 Fatigue 12453817 Active 2023 MALIK CRAWFORD [address], [place], [address] , [facility] 4 16:17:42 Hypokalem ia 89907933 Active 2023 MALIK CRAWFORD [address], [place], [address] , [facility] 4 12:32:58 Problem Notes None recorded. Procedures Surgical History None recorded. Imaging Results Imaging Date Name Status LastModified by Organiz ation Details LastModified Time 10/09/2023 CT, head + brain, w/o contrast completed [email or web address] [facility] (Medical Records) [address] [place], [address], 10/09/2023 11:57:33 10/17/2023 [facility] [address] [place], [address], 10/23/2023 16:38:08 11/21/2023 [facility] [address] [place], [address], 01/07/2024 11:05:59 11/21/2023 [facility] [address] [place], [address], 01/07/2024 11:05:59 Procedure Notes None recorded. Medical Equipment None Reported. Allergies Allergen ID Allergen Name Allergen Category Reaction Reaction Severity Criticality Documentation Date Start Date Code Code System Note Provider Name and Address Organization Details Recorded Time 8029 spironola ctone medicatio n Not available Not available Not available 10/16/2023 9997 RxNorm MALIK CRAWFORD [address],[facility] [place], [address], [facility] 4 10:58:37 8030 labetalol medicatio n Not available Not available Not available 10/16/2023 6185 RxNorm MALIK CRAWFORD [address],[place], [address], [facility] 4 10:58:43 8531 vortioxet ine hydrobrom elder medicatio n Not available Not available Not available 04/21/2024 [address]98[address] 34 RxNorm MALIK CRAWFORD [address], [place], [address], [facility] 4 16:16:32 Medications Name Sig Start Date Stop Date Status Note LastModified by Organization Details LastModified Time compound drug 11/06 completed Not Available Not Available Not Available losartan 50 mg tablet TAKE 1 TABLET BY MOUTH ONCE A DAY (D/C LISINOPRI L) 11/06 completed Not Available Not Available Not Available amoxicillin 500 mg capsule 11/06 completed Not Available Not Available Not Available prednisone 10 mg tablet 11/04 completed Not Available Not Available Not Available doxycycline hyclate 100 mg capsule TAKE 1 CAPSULE BY MOUTH TWICE A DAY FOR 14 DAYS 01/08 completed Not Available Not Available Not Available labetalol 200 mg tablet TAKE 1 TABLET BY MOUTH TWICE A DAY active Not Available Not Available No t Available azithromyci n 250 mg tablet TAKE 2 TABLETS BY MOUTH TODAY, THEN TAKE 1 TABLET DAILY FOR 4 DAYS 08/03 completed Not Available Not Available Not Available Lidocaine Viscous 2 % mucosal solution 05/07 completed Not Available Not Available Not Available ofloxacin 0.3 % eye drops 11/04 completed Not Available Not Available Not Available prazosin 1 mg capsule Take 1 capsule 3 times a day by oral route for 90 days. 2023 active Not Available Not Available Not Avai lable dextroamphe tamine-amph etamine 10 mg tablet Take 1 tablet twice a day by oral route for 30 days. active Not Available Not Available No t Available spironolact one 100 mg tablet TAKE 1 TABLET BY MOUTH EVERY DAY FOR 30 DAYS active Not Available Not Available No t Available penicillin V potassium 500 mg tablet 08/03 completed Not Available Not Available Not Available amlodipine 5 mg tablet TAKE 1 TABLET BY MOUTH EVERY DAY FOR 30 DAYS active Not Available Not Available No t Available chlorthalid one 50 mg tablet TAKE 1 TABLET BY MOUTH EVERY DAY 2023 active Not Available Not Available Not Avai lable ciprofloxac in 500 mg tablet TAKE 1 TABLET BY MOUTH EVERY 12 HOURS FOR 7 DAYS 09/13 completed Not Available Not Available Not Available bupropion HCl SR 100 mg tablet,12 hr sustained-r elease TAKE 1 TABLET BY MOUTH EVERY DAY DIRECTED 02/10 completed Not Available Not Available Not Available amoxicillin 875 mg tablet TAKE 1 TABLET BY MOUTH TWICE A DAY FOR 7 DAYS 08/09 completed Not Available Not Available Not Available ciprofloxac in 0.3 % eye drops 02/26 completed Not Available Not Available Not Available lorazepam 2 mg tablet TAKE 1-2 TABS NEEDED FOR FLIGHT ANXIETY active Not Available Not Available No t Available amlodipine 10 mg tablet TAKE 1 TABLET BY MOUTH EVERY DAY 10/07 completed Not Available Not Available Not Available benzonatate 100 mg capsule 11/04 completed Not Available Not Available Not Available lisinopril 10 mg tablet 02/26 completed Not Available Not Available Not Available prednisone 50 mg tablet TAKE 1 TABLET BY MOUTH EVERY DAY FOR 5 DAYS 08/03 completed Not Available Not Available Not Available polymyxin B sulfate 10,000 unit-trimet hoprim 1 mg/mL eye drops TAKE 1 DROP IN THE EYE EVERY 3 HOURS FOR 10 DAYS. DO NOT EXCEED 6 DOSES IN 24 HOURS 08/09 completed Not Available Not Available Not Available bupropion HCl 75 mg tablet TAKE 1 TABLET BY MOUTH EVERY DAY active Not Available Not Available No t Available hydrochloro thiazide 12.5 mg capsule TAKE 1 CAPSULE BY MOUTH TWICE A DAY FOR 30 DAYS active Not Available Not Available No t Available fluticasone propionate 50 mcg/actuati on nasal spray,suspe nsion SPRAY 1 SPRAY (INTRANAS AL) 2 TIMES PER DAY FOR 30 DAYS 08/09 completed Not Available Not Available Not Available spironolact one 50 mg tablet TAKE 1 TABLET BY MOUTH EVERY DAY FOR 30 DAYS active Not Available Not Available No t Available amoxicillin 875 mg-potassiu m clavulanate 125 mg tablet TAKE 1 TABLET BY MOUTH TWICE A DAY FOR 7 DAYS 08/03 completed Not Available Not Available Not Available amoxicillin 500 mg-potassiu m clavulanate 125 mg tablet TAKE 1 TAB 3 TIMES A DAY FOR 10 DAYS. TAKE W FOOD, YOGURT, PROBIOTIC S. FINISH ALL. 08/04 completed Not Available Not Available Not Available valsartan 40 mg tablet TAKE 1 TABLET BY MOUTH EVERY DAY 08/09 completed Not Available Not Available Not Available bupropion HCl XL 300 mg 24 hr tablet, extended release TAKE 1 TABLET BY MOUTH EVERY DAY 02/10 completed Not Available Not Available Not Available bupropion HCl XL 150 mg 24 hr tablet, extended release TAKE 1 TABLET BY MOUTH EVERY DAY active Not Available Not Available No t Available tadalafil 20 mg tablet TAKE 1 TABLET BY MOUTH EVERY DAY FOR 30 DAYS active Not Available Not Available No t Available Boostrix Tdap 2.5 Lf unit-8 mcg-5 Lf/0.5 mL intramuscul ar syringe 05/07 completed Not Available Not Available Not Available sildenafil (pulmonary hypertensio n) 20 mg tablet TAKE 2 TABS BY MOUTH ONE HOUR PRIOR TO SEXUAL INTERCOUR SE NEEDED 02/10 completed Not Available Not Available Not Available zinc active OTC Not Available Not Availa ble Not Available Vitamin D active OTC Not Available Not Katherin ilable Not Available Zyrtec 10 mg capsule Take 1 capsule every day by oral route. active Not Available Not Available No t Available potassium chloride ER 20 mEq tablet,exte nded release Take 1 tablet every day by oral route as directed for 10 days, for hypokalem ia. active Not Available Not Available No t Available Trintellix 5 mg tablet TAKE 1 TABLET BY MOUTH EVERY DAY 04/21 completed Not Available Not Available Not Available Fish Oil 1,000 mg (120 mg-180 mg) capsule 08/04 completed OTC Not Available Not Available Not Available Flucelvax Quad 0115-4943 (PF) 60 mcg (15 mcg x 4)/0.5 mL IM syringe 05/07 completed Not Available Not Available Not Available Afluria Quad (PF) 60 mcg (15 mcg x 4)/0.5 mL IM syringe 05/07 completed Not Available Not Available Not Available Flucelvax Quad (PF) 60 mcg (15 mcg x 4)/0.5 mL IM syringe 05/07 completed Not Available Not Available Not Available COVID-19 test specimen collection TEST DIRECTED 08/03 completed Not Available Not Available Not Available Flucelvax Quad (PF) 60 mcg (15 mcg x 4)/0.5 mL IM syringe ADM 0.5ML IM UTD 08/03 completed Not Available Not Available Not Available BinaxNOW COVID-19 Ag Self Test kit FOLLOW INSTRUCTI ONS INCLUDED WITH THE PACKAGE. 08/04 completed Not Available Not Available Not Available Paxlovid 300 mg (150 mg x 2)-100 mg tablets in a dose pack TAKE 2 NIRMATREL VIR TABLETS WITH 1 RITONAVIR TABLET BY MOUTH TWICE A DAY DIRECTED FOR 5 DAYS 01/06 completed Not Available Not Available Not Available Vitals Date Recorded Body height Body mass index (BMI) Body weight Heart rate Oxygen saturation Oxygen saturation in Arterial blood by Pulse oximetry Systolic blood pressure Diastolic blood pressure Provider Name and Address Organization Details Last Updated DateTime 4 175.9 cm 41 kg/m2 457691. 86 g 93 /min 97 % 97 % 140 mm[Hg] 78 mm[Hg] [facility] 4 16:02:27 Date Recorded Body height Body mass index (BMI) Body weight Heart rate Oxygen saturation Oxygen saturation in Arterial blood by Pulse oximetry Systolic blood pressure Diastolic blood pressure Provider Name and Address Organization Details Last Updated DateTime 4 175.9 cm 41 kg/m2 873217. 86 g 103 /min 97 % 97 % 118 mm[Hg] 70 mm[Hg] [facility] 4 10:42:18 Social History Question Answer Notes LastModified by Simperium ion Details LastModified Time Tobacco Smoking Status Former Smoker Not Available [facility] 04/06/2020 03:36:23 What Was The Date Of Your Most Recent Tobacco Screening? 01/07/2024 [email or web address] Information not available 01/07/2024 How Many Years Have You Smoked Tobacco? 15 [id number] Information not available 04/06/2020 Do You Or Have You Ever Used Any Other Forms Of Tobacco Or Nicotine? No [email or web address] Information not available 01/08/2023 Sex: Unknown Functional Status None recorded. Mental Status None recorded. Family History Nothing Reported. Medical History Condition Response Coronary Artery Disease N Other N Gout N Kidney Stones N Blood Diseases N Breast Cancer N Blood Transfusion N Lung Disease N COPD N Depression N Defects or Inherited Disease N Anxiety Disorder N Muscle, Joint, or Bone Problems N Obesity N Vision or Eye Problems N Arthritis N Infertility N Polyps N Mental Disorder N Cancer N Stroke N Varicosities N Endometriosis N Bladder or Kidney Problems N High Cholesterol N Liver Disease N Fibromyalgia N Headaches N Kidney Disease N Allergies/Hayfever N Heart Problems N Hospitalizations N Thyroid Problems N GI Problems N Skin Problems N Eating Disorder N Anemia N MRSA exposure N Constipation N Mental Illness N Ovarian Cancer N Diabetes N Seizures/Epilepsy N Tuberculosis N Congestive Heart Failure (CHF) N Eczema N Diverticulitis N Abuse/Domestic Violence N Asthma N Reflux/GERD N Hepatitis N Heart Disease N Pulmonary Embolism N Hypertension N Chicken Pox N Autism Spectrum Disorder (ASD) N Osteoporosis N Immunizations Vaccine Type Date Status Provider Name and Address Organization Details Recorded Time COVID-19, mRNA, LNP-S, PF, 30 mcg/0.3 mL dose 02/02/2021 completed MALIK CRAWFORD [address] [place], [address], [facility] 02/04/2021 08:56:11 Influenza, split virus, quadrivalent, preservative 02/19/2018 [facility] 13:30:16 COVID-19, mRNA, LNP-S, PF, 30 mcg/0.3 mL dose 08/01/2020 [facility]/04/2022 08:41:41 COVID-19, mRNA, LNP-S, PF, 30 mcg/0.3 mL dose 08/22/2020 [facility]/04/2022 08:41:48 COVID-19, mRNA, LNP-S, PF, 50 mcg/0.5 mL dose 02/20/2022 completed Lucita Martinez [facility] 08/04/2022 08:42:54 influenza, unspecified formulation 02/24/2021 completed Lucita Martinez [facility] 08/04/2022 08:43:12 influenza, unspecified formulation 02/20/2022 completed Lucita Martinez [facility] 08/04/2022 08:43:20 SARS-COV-2 (COVID-19) vaccine, UNSPECIFIED 03/08/2023 [facility] 03/13/2023 08:30:31 Td(adult) unspecified formulation 07/24/2017 completed Margot Gama [facility] 11/01/2018 16:11:58 Influenza, split virus, quadrivalent, preservative 03/03/2019 completed ABHISHEK Mercedes [address] [place], [address], [facility] 05/07/2019 15:19:17 Past Encounters Encounter ID Performer Location Encounter Start Date Encounter Closed Date Diagnosis/Indication Diagnosis SNOMED-CT Code Diagnosis ICD10 Code [id number] [facility] [address] [place] [address] [place] [address] 02/26/2018 14:14:04 02/26/2018 15:04:51 Sleep apnea 03026447 G47.30 Impaired f asting glycemia 158494482 R73.01 Essential hypertension 68122774 I10 Body mass index 40+ - severely obese 200805927 Z68.42 [id number] [facility] [address] [place] [address] 11/04/2018 14:26:06 11/04/2018 15:08:45 Adult health examination 024054074 Z00.00 Active or passive immunization 244032696 Z23 Body mass index 40+ - severely obese 064839454 Z68.42 Essential hypertension 43417891 I10 [id number] [facility] [address] [address] 05/07/2019 14:51:37 05/07/2019 15:34:54 Essential hypertension 80241106 I10 Hyperlipidemia 87027289 E78.5 Impaired f asting glycemia 995986443 R73.01 Sleep apnea 46252795 G47 .30 [id number] MALIK CRAWFORD [facility] [address] [place] [address] 11/07/2019 10:51:45 11/07/2019 11:57:04 Adult health examination 706948513 Z00.00 Active or passive immunization 504464422 Z23 [id number] MALIK CRAWFORD [facility] [address] [place] [address] 08/03/2021 15:23:17 08/05/2021 10:11:30 Active or passive immunization 977955121 Z23 Adult heal th examination 703825043 Z00.00 Adult atte ntion deficit hyperactivity disorder 507240465 F90.1 [id number] MALIK CRAWFORD [facility] [address] [place] [address], [place] [address] 08/04/2022 15:13:30 08/07/2022 11:17:02 Active or passive immunization 922942200 Z23 Adult heal th examination 939961895 Z00.00 Impetigo 51984549 L01.01 [id number] MALIK CRAWFORD [facility] [address] [place] [address], [place] [address] 01/08/2023 10:19:05 01/08/2023 15:33:38 Essential hypertension 07221108 I10 Exercise-i nduced asthma 61766702 J45.990 Hyperlipidemia 11855847 E78.2 Anxiety 22352731 F41.1 [id number] MALIK CRAWFORD [facility] [address] [place] [address], [place] [address] 01/23/2023 07:55:09 01/23/2023 16:32:28 Anxiety 74193829 F41.1 Essential hypertension 49411769 I10 Exercise-i nduced asthma 59855076 J45.990 [id number] MALIK CRAWFORD [facility] [address] [place] [address], [place] [address] 01/23/2023 09:46:53 01/23/2023 10:17:42 Hypertensive urgency 202884835 I16.0 Attention deficit hyperactivity disorder 706213492 F90.0 Essential hypertension 86899073 I10 [id number] MALIK CRAWFORD [facility] [address] [place] [address], [place] [address] 02/13/2023 09:07:06 02/13/2023 16:23:31 Anxiety 17252289 F41.1 Attention deficit hyperactivity disorder 381704900 F90.0 Hypertensive urgency 443 522030 I16.0 [id number] MALIK CRAWFORD [facility] [address] [place] [address], [place] [address] 02/28/2023 16:11:21 02/28/2023 16:41:40 Anxiety 97793956 F41.1 Attention deficit hyperactivity disorder 127232261 F90.0 Essential hypertension 04893087 I10 [id number] MALIK CRAWFORD [facility] [address] [place] [address], [place] [address] 08/10/2023 15:12:50 08/10/2023 16:23:33 Adult health examination 359340717 Z00.00 Essential hypertension 89251494 I10 Dysuria 65955891 R30.0 Venereal d isease screening 504476755 Z11.3 [id number] MALIK CRAWFORD [facility] [address] [place] [address], [place] [address] 09/14/2023 15:19:04 09/14/2023 16:03:44 Hypertensive urgency 635550578 I16.0 Essential hypertension 51843867 I10 Agoraphobia 68048835 F40 .00 Erectile dysfunction 860 925572 F52.21 [id number] MALIK CRAWFORD [facility] [address] [place] [address], [place] [address] 10/05/2023 15:46:23 10/08/2023 08:17:45 Depression screening 250927527 Z13.31 Essential hypertension 26846959 I10 [id number] MALIK CRAWFORD [facility] [address] [place] [address], [place] [address] 10/10/2023 16:26:17 10/10/2023 16:52:28 Essential hypertension 79148166 I10 [id number] MALIK CRAWFORD [facility] [address] [place] [address], [place] [address] 10/16/2023 10:28:41 10/16/2023 11:17:43 Essential hypertension 15895691 I10 Depression screening 171 951256 Z13.31 Hypertensi ve emergency 1184647168 28378 I16.1 [id number] MALIK CRAWFORD [facility] [address] [place] [address], [place] [address] 10/23/2023 16:06:08 10/24/2023 08:42:19 Hypertensive emergency 8149741953 19793 I16.1 Essential hypertension 45682018 I10 [id number] MALIK CRAWFORD [facility] INTER[facility] [address] [place], [place] [address] [address] 11/05/2023 15:57:16 11/05/2023 16:57:57 Resistant hypertensive disorder [id number] 70167 I1A.0 Essential hypertension [id number] I10 [id number] MALIK CRAWFORD [facility] [address] [place], [place] [address] [place] [address] 01/07/2024 10:28:58 01/07/2024 11:42:18 Attention deficit hyperactivity disorder 439410171 F90.0 Essential hypertension 55025048 I10 [id number] MALIK CRAWFORD [facility] [address] [place], [place] [address] [place] [address] 02/11/2024 08:45:39 02/11/2024 11:03:47 Attention deficit hyperactivity disorder 789241536 F90.0 Anxiety 70754419 F41.1 Erectile dysfunction 860 399031 F52.21 [id number] MALIK CRAWFORD [facility] [address] [place], [place] [address] [place] [address] 04/21/2024 09:58:32 04/21/2024 16:48:45 Attention deficit hyperactivity disorder 721969311 F90.0 Fatigue 84266267 R53.83 [id number] MALIK CRAWFORD [facility] [address] [place], [place] [address] [place] [address] 05/07/2024 09:42:46 05/07/2024 10:51:36 Hypokalemia 70936097 E87.6 Attention deficit hyperactivity disorder 358682422 F90.0 Hypertensi ve emergency 6144751012 14602 I16.1 Health Concerns Section Related Observation LastModified by Organization Detai ls LastModified Time None Recorded Concern Status LastModified by Organization Details LastModified Time None Recorded Advance Directives Directive None Recorded Payers Encounter Date Sequence Insurance Name Policy Number Policy Quan Covered Member ID Quan Member ID Guarantor Name 11/05/2023 1 [place] [id number] Priscilla Ames [id number] Ames 01/07/2024 1 [place] [id number] Priscilla Ames [id number] Jose Ames 02/11/2024 1 [place] [id number] Priscilla Ames [id number] 128 Jose Ames 04/21/2024 1 [place] [id number] Priscilla Ames [id number] 128 Jose Ames 05/07/2024 1 [place] [id number] Priscilla Ames [id number] Jose Ames Notes Date Note Type Note Provider Name and Address Organization Details Recorded Time 4 text/html f/u 3 week HTN: BP has dropped to a much better number without side effects on the prazosin and chlorthalidonewill continue on current doseworking on getting his US scheduled no side effects on this medications MALIK CRAWFORD [address] [place], [address], [facility] 11/05/2023 16:56:53 4 text/html f/u medication the patient is doing well with his BPhas stabilized with the medication adjustments and his US renal was normal HTN: today in the office the patient BP is 118/70 L arm sittingthe patient is doing well on the BP medication with no side effects and no adjustment of their medications needed today at the [facility] ed on medicationdenies chest pain, sob, ankle swelling, orthopnea, palpitations no changes needed today the patient and I discussed increasing his bupropion dose (have excluded that as a cause of the BP since it did not change when holding it for two weeks)will have him up to 400 mg, 300 mg + 100 mg and see how he feels on the adjusted dosetalked about alternatives if this working enough for the ADHD symptoms control patient feels more difficulties with concentration and attention spanfeels more easily agitated, very fidgety MALIK CRAWFORD [address] [place], [address], [facility] 01/07/2024 11:17:02 4 text/html f/u med adjustments The patient is participating in this appointment via telemedicine communication with a phone call/video calling service (Doxy)The patient consents to use of these platforms in place of an in-person appointment due to either sick symptoms the patient is presenting with or current office closure due to COVID exposure in order to keep our office staff and patients safe The patient presents to the office today for follow-up management of their ongoing depression/anxiety symptoms, which have been exacerbated by the adjusted bupropion dose, also still could risk elevating his BP now that we have stabilized it The patient's symptoms started two to three weeks agoThe patient endorses: Fatiguemood changesincrease irritabilityanxious thoughts The patient endorses extensive worry about his health and 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, difficulty with concentrating or making decisions, restlessnessThis is impacting their life by making him easier to snap at people around him, agreed to switch out to trintellix instead, since he has been on previous SSRI's that really effected his libido so will trial trintellix alternatively would like to switch to cialis, order placed After discussion patient for different interventions including cognitive behavioral therapy, medications, referral to therapist or psychiatrist the patient has agreed to med walker with fu in three weeks after my return from vacation MALIK CRAWFORD [address] [place] [address], [address], [facility] 02/11/2024 10:51:27 4 text/html follow-up The patient is participating in this appointment via telemedicine communication with a phone call/video calling service (Doxy)The patient consents to use of these platforms in place of an in-person appointment due to either sick symptoms the patient is presenting with or current office closure due to COVID exposure in order to keep our office staff and patients safe HTN: stable, much improved since introducing chlorthalidone and prazosin without side effects having some increased fatigue symptoms, feet numbness pain and mood changesdid get a B12 shot from his mother, said his symptoms improved significantly afterhas had anemia symptoms on and off before with low [id number] recheck levels will start on adderall for the ADHD symptoms, monitor BP, buproprion could have triggered to BP issues so would like to avoid restarting that and trial an alternative has been having hypotensive episodes here and there, BP has been excellent, most all readings are <120/80 MALIK CRAWFORD [address] [facility] [address], [place], [address], [facility] 04/21/2024 16:24:32 4 text/html f.u lab work The patient is participating in this appointment via telemedicine communication with a phone call/video calling service ([employer])The patient consents to use of these platforms in place of an in-person appointment due to either sick symptoms the patient is presenting with or current office closure due to COVID exposure in order to keep our office staff and patients safe hypokalemia: needs recheck this week after supplement started on Sundaycombo of trintellix and chlorthalidone dropped his levels, even though he was been off of the trintellix if his levels even out after the change and with the supplementation will see if he can stay on current meds otherwise will discuss alternatives ADHD: dose worked great, needs more in the afternoon, stops working around 12-1sent new dose over to the pharm fixed the prazosin script MALIK CRAWFORD [address] [facility],[address], [place], [address], [facility] 05/07/2024 10:36:58
--- OUTSIDE RECORDS SUMMARY | 2024-05-13 20:58 | XMS_ITS | Continuity of Care Document ---
Author Organization [facility], [facility] Address [address] [place] [address] Assessment Encounter Date Assessment Date Assessment LastModified by Organization Details LastModified Time 05/07/2024 05/07/2024 Patient agreed and verbally consents to this audio and video Telehealth appt via a secure platform [email or web address] Not available 05/07/2024 10:29:17 Plan of Treatment Reminders Order Date Submit Date Provider Last Modified By Organization Details Last Modified Time Details Appointments None recorded. Lab CMP, serum or plasma 2023 [facility], [address] [place] [address], [place], [address], 4 11:39:49 Referral None recorded. Procedures None recorded. Surgeries None recorded. Imaging None recorded. Medication Orders prazosin 1 mg capsule 2023 024 [id number], [address] [place], [address], 4 10:32:27 dextroamph etamine-am phetamine 10 mg tablet 2023 024 [id number], [address] [place], [address], 4 10:32:28 Patient TargetsNo targets recorded. Patient InstructionsNo instructions recorded. Reason for Referral None Reported. 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, 1994 Not Available [facility] 3 14:13:30 Varicella 97315511 Active 2017 Not Available [facility] 3 14:13:30 Migraine 31596276 Active 2017 Not Available [facility] 3 14:13:30 Exercise- induced asthma 56856646 Active 2017 Not Available [facility] 3 14:13:30 Seasonal affective disorder 649693839 Active 2017 Not Available [facility] 3 14:13:30 Attention deficit hyperacti vity disorder 580276043 Active 2017 Not Available [facility] 3 14:13:31 Disorder of vision 97797428 Active 2017 corrected vision Not Available [facility] 3 14:13:31 Anxiety 13339107 Active 2017 Flight Not Available [facility] 3 14:13:31 Impaired fasting glycemia 285784245 Active 2017 Not Available [facility] 3 14:13:31 Essential hypertens ion 36509151 Active 2017 Not Available [facility] 3 14:13:31 Hyperlipi demia 63008785 Active 2017 Not Available [facility] 3 14:13:31 Sleep apnea 09694025 Active 2017 Not Available [facility] 3 14:13:31 Kidney stone 47423047 Active 2021 Not Available [facility] 3 14:13:31 Impetigo 72372709 Active 2022 Not Available [facility] 3 14:13:31 Hypertens lara urgency 547498701 Active 2022 Not Available [facility] 3 14:13:31 Dysuria 26754037 Active 2023 MALIK CRAWFORD [address], [place], [address] , [facility] 4 15:37:51 Agoraphob ia 07224670 Active 2023 MALIK CRAWFORD [address], [place], [address] , [facility] 4 15:56:51 Erectile dysfuncti on 261042083 Active 2023 MALIK CRAWFORD [address], [place], [address] , [facility] Internal [facility] 4 15:58:57 Hypertens lara emergency 92076614060 9104 Active 2023 MALIK CRAWFORD [address], [place], [address] , [facility] 4 09:49:44 Resistant hypertens lara disorder 72116156466 4109 Active 2023 MALIK CRAWFORD [address], [place], [address] , [facility] Internal [facility] 4 11:20:24 Fatigue 97213598 Active 2023 MALIK CRAWFORD [address], [place], [address] , [facility] 4 16:17:42 Hypokalem ia 56031781 Active 2023 MALIK CRAWFORD [address], [place], [address] , [facility] 4 12:32:58 Problem Notes None recorded. Medical Equipment None Reported. Allergies Allergen ID Allergen Name Allergen Category Reaction Reaction Severity Criticality Documentation Date Start Date Code Code System Note Provider Name and Address Organization Details Recorded Time 8029 spironola ctone medicatio n Not available Not available Not available 10/16/2023 9997 RxNorm ENEDINA MCLAIN PA [address],[place] [address], [facility] [place], [address], [facility] 4 10:58:37 8030 labetalol medicatio n Not available Not available Not available 10/16/2023 6185 RxNorm MALIK CRAWFORD 6 [facility],[address], [place], [address], [facility] 4 10:58:43 8531 vortioxet ine hydrobrom elder medicatio n Not available Not available Not available 04/21/2024 73647 34 RxNoMALIK Smiley [address] [facility] [address], [place], [address], [facility] Internal [facility] 4 16:16:32 Medications Name Sig Start Date [...] Available Not Available Not Available Flucelvax Quad 3440-8102 (PF) 60 mcg (15 mcg x 4)/0.5 [...] completed Not Available Not Available Not Available [employer] COVID-19 Ag Self Test kit FOLLOW INSTRUCTI ONS INCLUDED WITH THE PACKAGE. 08/04 completed Not Available Not Available Not Available Paxlovid 300 mg (150 mg x 2)-100 mg tablets in a dose pack TAKE 2 NIRMATREL VIR TABLETS WITH 1 RITONAVIR TABLET BY MOUTH TWICE A DAY DIRECTED FOR 5 DAYS 01/06 completed Not Available Not Available Not Available Vitals None Recorded Social History Question Answer Notes LastModified by Organizat ion Details LastModified Time Tobacco Smoking Status Former Smoker Not Available [facility] 04/06/2020 03:36:23 What Was The Date Of Your Most Recent Tobacco Screening? 01/07/2024 [email or web address] Information not available 01/07/2024 How Many Years Have You Smoked Tobacco? 15 [id number] Information not available 04/06/2020 Do You Or Have You Ever Used Any Other Forms Of Tobacco Or Nicotine? No [email or web address] Information not available 01/08/2023 Sex: Unknown Functional Status None recorded. Mental Status None recorded. Family History Nothing Reported. Medical History Condition Response Coronary Artery Disease N Gout N Other N Kidney Stones N Blood Diseases N Blood Transfusion N Breast Cancer N COPD N Depression N Lung Disease N Defects or Inherited Disease N Anxiety Disorder N Muscle, Joint, or Bone Problems N Obesity N Vision or Eye Problems N Arthritis N Polyps N Infertility N Mental Disorder N Cancer N Varicosities N Stroke N Endometriosis N Bladder or Kidney Problems N High Cholesterol N Liver Disease N Headaches N Fibromyalgia N Kidney Disease N Allergies/Hayfever N Heart Problems N Hospitalizations N Thyroid Problems N GI Problems N Eating Disorder N Skin Problems N Anemia N MRSA exposure N Constipation N Mental Illness N Diabetes N Ovarian Cancer N Seizures/Epilepsy N Tuberculosis N Congestive Heart Failure (CHF) N Eczema N Abuse/Domestic Violence N Diverticulitis N Asthma N Reflux/GERD N Hepatitis N Heart Disease N Pulmonary Embolism N Hypertension N Chicken Pox N Autism Spectrum Disorder (ASD) N Osteoporosis N Immunizations Vaccine Type Date Status Provider Name and Address Organization Details Recorded Time COVID-19, mRNA, LNP-S, PF, 30 mcg/0.3 mL dose 02/02/2021 completed MALIK CRAWFORD [address] [place], [address], [facility] 02/04/2021 08:56:11 Influenza, split virus, quadrivalent, preservative 02/19/2018 [facility] 13:30:16 COVID-19, mRNA, LNP-S, PF, 30 mcg/0.3 mL dose 08/01/2020 [facility]/04/2022 08:41:41 COVID-19, mRNA, LNP-S, PF, 30 mcg/0.3 mL dose 08/22/2020 [facility]/04/2022 08:41:48 COVID-19, mRNA, LNP-S, PF, 50 mcg/0.5 mL dose 02/20/2022 completed Lucita Martinez [facility] 08/04/2022 08:42:54 influenza, unspecified formulation 02/24/2021 completed Lucita Martinez [facility] 08/04/2022 08:43:12 influenza, unspecified formulation 02/20/2022 [facility]2022 08:43:20 SARS-COV-2 (COVID-19) vaccine, UNSPECIFIED 03/08/2023 [facility] 03/13/2023 08:30:31 Td(adult) unspecified formulation 07/24/2017 [facility]/01/2018 16:11:58 Influenza, split virus, quadrivalent, preservative 03/03/2019 completed ABHISHEK Mercedes [address] [place], [address], [facility] 05/07/2019 15:19:17 Past Encounters Encounter ID Performer Location Encounter Start Date Encounter Closed Date Diagnosis/Indication Diagnosis SNOMED-CT Code Diagnosis ICD10 Code [id number] MALIK CRAWFORD [facility] [address] [facility] [place] [address] 04/21/2024 09:58:32 04/21/2024 16:48:45 Attention deficit hyperactivity disorder 395290142 F90.0 Fatigue 79381370 R53.83 [id number] MALIK CRAWFORD [facility] 6 [facility] [place] [address] 05/07/2024 09:42:46 05/07/2024 10:51:36 Hypokalemia 94981288 E87.6 Attention deficit hyperactivity disorder 876247703 F90.0 Hypertensi ve emergency 1267573320 67322 I16.1 Health Concerns Section Related Observation LastModified by Organization Detai ls LastModified Time None Recorded Concern Status LastModified by Organization Details LastModified Time None Recorded Payers Encounter Date Sequence Insurance Name Policy Number Policy Quan Covered Member ID Quan Member ID Guarantor Name 05/07/2024 1 [place] [id number] Priscilla Ames [id number] [address] Ames Notes Date Note Type Note Provider Name and Address Organization Details Recorded Time 05/07/2024 text/html f.u lab work The patient is participating in this appointment via telemedicine communication with a phone call/video calling service ([employer])The patient consents to use of these platforms [...] fixed the prazosin script MALIK CRAWFORD 6 [facility],[address], [place], [address], [facility] 05/07/2024 10:36:58
--- OUTSIDE RECORDS SUMMARY | 2024-05-13 20:58 | XMS_ITS | Continuity of Care Document ---
Author Organization [place] [facility] Address [address] [place] [address] Assessment Encounter Date Assessment Date Assessment LastModified by Organization Details LastModified Time 04/21/2024 04/21/2024 Patient agreed and verbally consents to this audio and video Telehealth appt via a secure platform [email or web address] Not available 04/21/2024 16:24:12 Plan of Treatment Reminders Order Date Submit Date Provider Last Modified By Organization Details Last Modified Time Details Appointments None recorded. Lab vitamin D, 25-hydrox y, total, serum 2023 [facility], [address] [place] [address], [address], 4 08:46:45 vitamin B12 + folate, serum or blood 2023 [facility], [address] [place] [address], [address], 4 08:46:45 iron + TIBC + ferritin, serum 2023 [facility], [address] [place] [address], [address], 4 16:19:58 CMP, serum or plasma 2023 [facility], [address] [place] [address], [address], 4 08:46:45 CBC w/ auto diff 2023 [facility], [address], [place], [address], 4 16:19:59 TSH + free T4, serum 2023 024 [facility], [address], [place], [address], 4 08:46:45 Referral None recorded. Procedures None recorded. Surgeries None recorded. Imaging None recorded. Medication Orders dextroamp hetamine- amphetami ne 10 mg tablet 2023 [id number], [address] [place], [address], 4 16:17:34 Patient TargetsNo targets recorded. Patient InstructionsNo instructions recorded. Reason for Referral None Reported. Problems Name Problem SNOMED Code Status Onset Date Resolution Date Notes Provider Name and Address Organization Details Recorded Time History of depressio n 561142717 Active 2017 Depressiv e episode 6742-1791 Not Available [facility] 14:13:30 Meningiti s 4067831 Active 2017 Not Available [facility] 14:13:31 Concussio n injury of brain 980415146 Active 2017, 1994 Not Available [facility] 3 14:13:30 Varicella 90773690 Active 2017 Not Available [facility] 3 14:13:30 Migraine 94626809 Active 2017 Not Available [facility] 3 14:13:30 Exercise- induced asthma 96556956 Active 2017 Not Available [facility] 14:13:30 Seasonal affective disorder 092096548 Active 2017 Not Available [facility] 3 14:13:30 Attention deficit hyperacti vity disorder 352046101 Active 2017 Not Available [facility] 3 14:13:31 Disorder of vision 24929318 Active 2017 corrected vision Not Available [facility] 3 14:13:31 Anxiety 22227553 Active 2017 Flight Not Available [facility] 3 14:13:31 Impaired fasting glycemia 641031569 Active 2017 Not Available [facility] 3 14:13:31 Essential hypertens ion 12638002 Active 2017 Not Available [facility] 3 14:13:31 Hyperlipi demia 53497720 Active 2017 Not Available [facility] 3 14:13:31 Sleep apnea 25762337 Active 2017 Not Available [facility] 3 14:13:31 Kidney stone 96430873 Active 2021 Not Available [facility] 3 14:13:31 Impetigo 70816423 Active 2022 Not Available [facility] 3 14:13:31 Hypertens lara urgency 366067022 Active 2022 Not Available [facility] 3 14:13:31 Dysuria 29182872 Active 2023 MALIK CRAWFORD [address] [place] [place], [address] , [facility] 4 15:37:51 Agoraphob ia 16241841 Active 2023 MALIK CRAWFORD [address],[place] [facility] [place], [address] , [facility] 4 15:56:51 Erectile dysfuncti on 555297072 Active 2023 MALIK CRAWFORD [address],[place] [facility] [place], [address] , [facility] 4 15:58:57 Hypertens lara emergency 72785259710 9104 Active 2023 MALIK CRAWFORD [address],[place] [place], [address] , [facility] 4 09:49:44 Resistant hypertens lara disorder 48496361735 4109 Active 2023 MALIK CRAWFORD [address] [facility], [place], [address] , [facility] 4 11:20:24 Fatigue 14150495 Active 2023 MALIK CRAWFORD [address] [facility], [place], [address] , [facility] Internal [facility] 4 16:17:42 Hypokalem ia 98079360 Active 2023 MALIK CRAWFORD 6 [facility], [place], [address] , [facility] Internal [facility] 4 12:32:58 Problem Notes None recorded. Medical Equipment None Reported. Allergies Allergen ID Allergen Name Allergen Category Reaction Reaction Severity Criticality Documentation Date Start Date Code Code System Note Provider Name and Address Organization Details Recorded Time 8029 spironola ctone medicatio n Not available Not available Not available 10/16/2023 9997 RxNorm MALIK CRAWFORD [address],[facility], [place], [address], [facility] 4 10:58:37 8030 labetalol medicatio n Not available Not available Not available 10/16/2023 6185 RxNorm MALIK CRAWFORD 6 [facility],[place], [address], [facility] Internal [facility] 4 10:58:43 8531 vortioxet ine hydrobrom elder medicatio n Not available Not available Not available 04/21/2024 96680 34 RxNorm MALIK CRAWFORD [address] [facility],[place], [address], [facility] Internal [facility] 4 16:16:32 Medications Name Sig [...] Available Not Available Not Available Flucelvax Quad 9949-3122 (PF) 60 mcg (15 mcg x 4)/0.5 [...] Tobacco Smoking Status Former Smoker Not Available [facility] 04/06/2020 03:36:23 What Was The Date Of Your Most Recent Tobacco Screening? 01/07/2024 [email or web address] Information not available 01/07/2024 How Many Years Have You Smoked Tobacco? 15 [id number] Information not available 04/06/2020 Do You Or Have You Ever Used Any Other Forms Of Tobacco Or Nicotine? No [email or web address] Information not available 01/08/2023 Sex: Unknown Functional Status None recorded. Mental Status None recorded. Family History Nothing Reported. Medical History Condition Response Coronary Artery Disease N Other N Gout N Blood Diseases N Kidney Stones N Blood Transfusion N Breast Cancer N Depression N COPD N Lung Disease N Defects or Inherited [...] Disease N Pulmonary Embolism N Hypertension N Osteoporosis N Chicken Pox N Autism Spectrum Disorder (ASD) N Immunizations Vaccine Type Date Status Provider Name and Address Organization Details Recorded Time COVID-19, mRNA, LNP-S, PF, 30 mcg/0.3 mL dose 02/02/2021 completed MALIK CRAWFORD [address] [place] [address], [address], [facility] 02/04/2021 08:56:11 Influenza, split virus, quadrivalent, preservative 02/19/2018 completed Margto quiñones [facility] 02/20/2018 13:30:16 COVID-19, mRNA, LNP-S, PF, 30 mcg/0.3 mL dose 08/01/2020 santa quiñones [facility] Internal [facility] 08/04/2022 08:41:41 COVID-19, mRNA, LNP-S, PF, 30 mcg/0.3 mL dose 08/22/2020 santa quiñones [facility] 08/04/2022 08:41:48 COVID-19, mRNA, LNP-S, PF, 50 mcg/0.5 mL dose 02/20/2022 completed Lucita quiñones [facility] 08/04/2022 08:42:54 influenza, unspecified formulation 02/24/2021 completed Lucita quiñones [facility] 08/04/2022 08:43:12 influenza, unspecified formulation 02/20/2022 completed Lucita Martinez [facility] 08/04/2022 08:43:20 SARS-COV-2 (COVID-19) vaccine, UNSPECIFIED 03/08/2023 [facility]/13[facility] 08:30:31 Td(adult) unspecified formulation 07/24/2017 [facility] 11/01/2018 16:11:58 Influenza, split virus, quadrivalent, preservative 03/03/2019 completed ABHISHEK Mercedes [address] [place], [address], [facility] Internal [facility] 05/07/2019 15:19:17 Past Encounters Encounter ID Performer Location Encounter Start Date Encounter Closed Date Diagnosis/Indication Diagnosis SNOMED-CT Code Diagnosis ICD10 Code [id number] MALIK CRAWFORD [facility] [address],[place] [address] 04/21/2024 09:58:32 04/21/2024 16:48:45 Attention deficit hyperactivity disorder 867289895 F90.0 Fatigue 73064514 R53.83 Health Concerns Section Related Observation LastModified by Organization Detai ls LastModified Time None Recorded Concern Status LastModified by Organization Details LastModified Time None Recorded Payers Encounter Date Sequence Insurance Name Policy Number Policy Quan Covered Member ID Quan Member ID Guarantor Name 04/21/2024 1 [place] [id number] Priscilla Ames [id number] Ames Notes Date Note Type Note Provider Name and Address Organization Details Recorded Time 04/21/2024 text/html follow-up The patient is participating in this appointment via telemedicine communication with a phone call/video calling service ([email or web address])The patient consents to use of these platforms [...] symptoms on and off before with low H29iurt recheck levels will start on adderall for the ADHD symptoms, monitor BP, buproprion could have triggered to BP issues so would like to avoid restarting that and trial an alternative has been having hypotensive episodes here and there, BP has been excellent, most all readings are <120/80 MALIK CRAWFORD [address] [place] [address],[place], [address], [facility] 04/21/2024 16:24:32
== END 2024-05-07 15:13 | disposition home or self-care (01) ==
LOC: HO.LAB 15:12
PROVIDERS: PCP Internal Medicine; Visit Provider Physician Assistant
DX: E87.6 Hypokalemia (principal)
CPT/HCPCS: 36415; 80053

== ENCOUNTER 2024-05-24 09:16 | Outpatient (REF) | payer BC, SELFPAY ==
--- OUTSIDE RECORDS SUMMARY | 2024-05-24 09:19 | XMS_ITS | Continuity of Care Document ---
Author Organization [facility], [facility] Address [address] [place] [address] Assessment Encounter Date Assessment Date Assessment LastModified by Organization Details LastModified Time 05/07/2024 05/07/2024 Patient agreed and verbally consents to this audio and video Telehealth appt via a secure platform [email or web address] Not available 05/07/2024 10:29:17 Plan of Treatment Reminders Order Date Submit Date Provider Last Modified By Organization Details Last Modified Time Details Appointments FOLLOW UP 15 2023 10:15A MALIK BLOOM Not available Not available Not available Lab CMP, serum or plasma 2023 [facility], [address] [place] [address], [address], 05/08/2024 11:39:49 Referral None recorded. Procedures None recorded. Surgeries None recorded. Imaging None recorded. Medication Orders prazosin 1 mg capsule 2023 [id number], [address] [place], [address], 05/07/2024 10:32:27 dextroamp hetamine- amphetami ne 10 mg tablet 2023 [id number], [address] [place], [address], 05/07/2024 10:32:28 Patient TargetsNo targets recorded. Patient InstructionsNo instructions recorded. Reason for Referral None Reported. 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, 1994 Not Available [facility] 3 14:13:30 Varicell a 34311843 Active 2017 Not Available [facility] 3 14:13:30 Migraine 36362947 Active 2017 Not Available [facility] 3 14:13:30 Exercise -induced asthma 95160706 Active 2017 Not Available [facility] 3 14:13:30 Seasonal affectiv e disorder 469928520 Active 2017 Not Available [facility] 3 14:13:30 Attentio n deficit hyperact ivity disorder 824564654 Active 2017 Not Available [facility] 3 14:13:31 Disorder of vision 31397771 Active 2017 corrected vision Not Available [facility] 3 14:13:31 Anxiety 40588984 Active 2017 Flight Not Available [facility] 3 14:13:31 Impaired fasting glycemia 611453185 Active 2017 Not Available [facility] 3 14:13:31 Essentia l hyperten jil 27506846 Active 2017 Not Available [facility] 3 14:13:31 Hyperlip idemia 70637943 Active 2017 Not Available [facility] 3 14:13:31 Sleep apnea 96771357 Active 2017 Not Available [facility] 3 14:13:31 Kidney stone 33933304 Active 2021 Not Available [facility] 3 14:13:31 Impetigo 79292782 Active 2022 Not Available [facility] 3 14:13:31 Hyperten sive urgency 645670558 Active 2022 Not Available [facility] 3 14:13:31 Dysuria 60491027 Active 2023 MALIK CRAWFORD [address] [place] [address], [address], [facility] 4 15:37:51 Agorapho manjula 43987261 Active 2023 MALIK CRAWFORD [address] [place] [address], [address], [facility] 4 15:56:51 Erectile dysfunct ion 271358411 Active 2023 MALIK CRAWFORD [address] [place] [address], [address], [facility] 4 15:58:57 Hyperten sive emergenc y 74770822120 9104 Active 2023 MALIK CRAWFORD [address] [place] [address], [address], [facility] 4 09:49:44 Resistan t hyperten sive disorder 14766979463 4109 Active 2023 MALIK CRAWFORD [address] [place] [address], [address], [facility] 4 11:20:24 Fatigue 48133740 Active 2023 MALIK CRAWFORD [address] [place] [address], [address], [facility] 4 16:17:42 Hypokale reina 49644269 Active 2023 MALIK CRAWFORD [address] [place] [address], [address], [facility] 4 12:32:58 Problem Notes None recorded. Medical Equipment None Reported. Allergies Allergen ID Allergen Name Allergen Category Reaction Reaction Severity Criticality Documentation Date Start Date Code Code System Note Provider Name and Address Organization Details Recorded Time 8029 spironola ctone medicatio n Not available Not available Not available 10/16/2023 9997 RxNorm MALIK CRAWFORD [address] [place], [address], [facility] Internal [facility] 4 10:58:37 8030 labetalol medicatio n Not available Not available Not available 10/16/2023 6185 RxNorm MALIK CRAWFORD [address] [place], [address], [facility] 4 10:58:43 8531 vortioxet ine hydrobrom elder medicatio n Not available Not available Not available 04/21/2024 74687 34 RxNorm MALIK CRAWFORD [address] [place], [address], [facility] 4 16:16:32 Medications Name Sig [...] Not Available Not Available No t Available ciprofloxac in 500 mg tablet TAKE 1 [...] day by oral route as directed for 30 days, for hypokalem ia. 2023 active Not Available Not Available Not Avai lable Trintellix 5 mg tablet TAKE 1 TABLET [...] Tobacco Smoking Status Former Smoker Not Available [facility] 04/06/2020 03:36:23 What Was The Date Of Your Most Recent Tobacco Screening? 05/19/2024 [email or web address] Information not available 05/19/2024 How Many Years Have You Smoked Tobacco? 15 [id number] Information not available 04/06/2020 Do You Or Have You Ever Used Any Other Forms Of Tobacco Or Nicotine? No [email or web address] Information not available 01/08/2023 Sex: Unknown Functional Status None recorded. Mental Status None recorded. Family History Nothing Reported. Medical History Condition Response Coronary Artery Disease N Gout N Other N Kidney Stones N Blood Diseases N Blood Transfusion N Breast Cancer N Lung Disease N Depression N COPD N Defects or Inherited Disease N Anxiety [...] Osteoporosis N Immunizations Vaccine Type Date Status Note Provider Nam e and Address Organization Details Recorded Time COVID-19, mRNA, LNP-S, PF, 30 mcg/0.3 mL dose 1 completed MALIK CRAWFORD [address] [place] [address], [address], [facility] 02/04/2021 08:56:11 Influenza, split virus, quadrivalent, preservative 8 [facility] 13:30:16 COVID-19, mRNA, LNP-S, PF, 30 mcg/0.3 mL dose 1 completed Lucita Martinez [facility] 08/04/2022 08:41:41 COVID-19, mRNA, LNP-S, PF, 30 mcg/0.3 mL dose 1 completed Lucita Martinez [facility] 08/04/2022 08:41:48 COVID-19, mRNA, LNP-S, PF, 50 mcg/0.5 mL dose 2 completed Lucita Martinez [facility] 08/04/2022 08:42:54 influenza, unspecified formulation 1 completed Lucita Martinez [facility] 08/04/2022 08:43:12 influenza, unspecified formulation 2 completed Lcuita Martinez [facility] 08/04/2022 08:43:20 SARS-COV-2 (COVID-19) vaccine, UNSPECIFIED 3 completed Sary Borjas [facility] 03/13/2023 08:30:31 Td(adult) unspecified formulation 8 [facility]2018 16:11:58 Influenza, split virus, quadrivalent, preservative 9 completed September ABHISHEK Snyder [address] [place], [address], [facility] 05/07/2019 15:19:17 Past Encounters Encounter ID Performer Location Encounter Start Date Encounter Closed Date Diagnosis/Indication Diagnosis SNOMED-CT Code Diagnosis ICD10 Code [id number] MALIK CRAWFORD [facility] [address] [place] [address],[place] [address] 04/21/2024 09:58:32 04/21/2024 16:48:45 Attention deficit hyperactivity disorder 234440823 F90.0 Fatigue 96767940 R53.83 [id number] MALIK CRAWFORD [facility] [address] [place] [address],[place] [address] 05/07/2024 09:42:46 05/07/2024 10:51:36 Hypokalemia 32508677 E87.6 Attention deficit hyperactivity disorder 614394939 F90.0 Hypertensi ve emergency 7956282887 03275 I16.1 Health Concerns Section Related Observation LastModified by Organization Detai ls LastModified Time None Recorded Concern Status LastModified by Organization Details LastModified Time None Recorded Payers Encounter Date Sequence Insurance Name Policy Number Policy Quan Covered Member ID Quan Member ID Guarantor Name 05/07/2024 1 [place] [id number] Priscilla Ames [id number] Jose Ames Notes Date Note Type Note Provider Name a id Address Organization Details Recorded Time 4 text/html f.u lab work The patient [...] pharm fixed the prazosin script MALIK CRAWFORD [address] [place] [address], [place], [address], [facility] 05/07/2024 10:36:58
--- OUTSIDE RECORDS SUMMARY | 2024-05-24 09:19 | XMS_ITS | Data Portability ---
Author Organization [facility] Service Address [address] [place] [address] Assessment Encounter Date Assessment Date Assessment LastModified [...] Not available Not available Not available Lab vitamin D, 25-hydrox y, total, serum 2023 [facility], [address] [place] [address], [address], 05/02/2024 08:46:45 vitamin B12 + folate, serum or blood 2023 [facility], [address] [place] [address], [address], 05/02/2024 08:46:45 iron + TIBC + ferritin, serum 2023 024 [facility], [address] [place] [address], [address], 04/21/2024 16:19:58 CMP, serum or plasma 2023 024 [facility], [address] [place] [address], [address], 05/02/2024 08:46:45 CBC w/ auto diff 2023 024 [facility], [address] [place] [address], [address], 04/21/2024 16:19:59 TSH + free T4, serum 2023 024 [facility], [address] [place] [address], [address], 05/02/2024 08:46:45 CMP, serum or plasma 2023 024 [facility], [address] [place] [address], [address], 05/08/2024 11:39:49 RPR (rapid plasma reagin), serum 2023 024 [facility], [address] [place] [address], [address], 05/19/2024 15:25:15 HIV 1+2 AB + HIV 1 p24 Ag, qualitati ve immunoass ay, serum 2023 024 [facility], [address] [place] [address], [address], 05/19/2024 15:25:15 CT + NG + TV, DNA, urine/swa b 2023 024 [facility], [address] [place] [address], [address], 05/19/2024 15:25:15 hepatitis panel (A+B+C), acute, serum 2023 024 [facility], [address] [place] [address], [place], [address], 05/19/2024 15:25:15 BMP, serum or plasma 2023 024 [facility], [address] [place] [address], [place], [address], 05/19/2024 15:25:15 magnesium , serum or plasma 2023 024 [facility], [address] [place] [address], [place], [address], 05/19/2024 15:25:15 Referral None recorded. Procedures None recorded. Surgeries None recorded. Imaging None recorded. Medication Orders bupropion HCl SR 100 mg tablet,12 hr sustained -release 2023 024 [facility] #[id number], [address] [place], [address], 02/11/2024 10:40:57 tadalafil 20 mg tablet 2023 024 [facility] #[id number], [address] [place], [address], 02/11/2024 10:46:32 Trintelli x 5 mg tablet 2023 024 [facility][id number], [address] [place], [address], 04/21/2024 16:12:11 dextroamp hetamine- amphetami ne 10 mg tablet 2023 024 [facility] #0373, [address] [place], [address], 04/21/2024 16:17:34 prazosin 1 mg capsule 122023 [facility] #[id number], [address] [place], [address], 05/07/2024 10:32:27 dextroamp hetamine- amphetami ne 10 mg tablet 2023 [facility] #037[facility], [address] [place], [address], 05/07/2024 10:32:28 potassium chloride ER 20 mEq tablet,ex tended release 2023 [facility] #[id number], [address] [place], [address], 05/19/2024 15:24:01 Patient TargetsNo targets recorded. Patient InstructionsNo instructions recorded. Reason for Referral None Reported. Results Created Date Observation Date Name Description Value Unit Range Abnormal Flag Note LastModifiedBy Organization Detail LastModifiedTime 12/10/1911/21/2023 US, renal No observ ation record ed. [facility] (Medical Records) [address] [place], [address], 01/07/2024 11:05:59 12/10/1911/21/2023 US, renal arter y No observ ation record ed. [facility] (Medical Records) [address] [place], [address], 01/07/2024 11:05:59 Result Notes None recorded. 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 3 14:13:30 Migraine 76401286 Active 2017 Not Available [facility] 3 14:13:30 Exercise -induced asthma 60281660 Active 2017 Not Available [facility] 3 14:13:30 Seasonal affectiv e disorder 498238215 Active 2017 Not Available [facility] 3 14:13:30 Attentio n deficit hyperact ivity disorder 641202307 Active 2017 Not Available [facility] 3 14:13:31 Disorder of vision 07626361 Active 2017 corrected vision Not Available [facility] 3 14:13:31 Anxiety 60741048 Active 2017 Flight Not Available [facility] 3 14:13:31 Impaired fasting glycemia 560309878 Active 2017 Not Available [facility] 3 14:13:31 Essentia l hyperten jil 16139205 Active 2017 Not Available [facility] 3 14:13:31 Hyperlip idemia 05380465 Active 2017 Not Available [facility] 3 14:13:31 Sleep apnea 87790265 Active 2017 Not Available [facility] 3 14:13:31 Kidney stone 90364091 Active 2021 Not Available [facility] 3 14:13:31 Impetigo 14032101 Active 2022 Not Available [facility] 3 14:13:31 Hyperten sive urgency 550766719 Active 2022 Not Available 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 2023 MALIK CRAWFORD [address] [place], [address], [facility] 4 15:56:51 Erectile dysfunct ion 708891483 Active 2023 MALIK CRAWFORD [address] [place], [address], [facility] 15:58:57 Hyperten sive emergenc y 11814163505 9104 Active 2023 MALIK CRAWFORD [address] [place] [address], [address], [facility] 09:49:44 Resistan t hyperten sive disorder 97378040276 4109 Active 2023 MALIK CRAWFORD [address] [place] [address], [address], [facility] 4 11:20:24 Fatigue 22295382 Active 2023 MALIK CRAWFORD [address] [place] [address], [address], [facility] 16:17:42 Hypokale reina 17538512 Active 2023 MALIK CRAWFORD [address] [place] [address], [address], [facility] 4 12:32:58 Problem Notes None recorded. Procedures Surgical History None recorded. Imaging Results Imaging Date Name Status LastModified by Organiz ation Details LastModified Time 11/21/2023 US, renal completed [facility] (Medical Records) [address] [place], [address], 01/07/2024 11:05:59 11/21/2023 US, renal artery completed [facility] (Medical Records) [address] [place], [address], 01/07/2024 11:05:59 Procedure Notes None recorded. Medical Equipment None Reported. Allergies Allergen ID Allergen Name Allergen Category Reaction Reaction Severity Criticality Documentation Date Start Date Code Code System Note Provider Name and Address Organization Details Recorded Time 8029 spironola ctone medicatio n Not available Not available Not available 10/16/2023 9997 RxNorm MALIK CRAWFORD [address] [place], [address], [facility] 4 10:58:37 8030 labetalol medicatio n Not available Not available Not available 10/16/2023 6185 RxNorm MALIK CRAWFORD [address] [place], [address], [facility] 4 10:58:43 8531 vortioxet ine hydrobrom elder medicatio n Not available Not available Not available 04/21/2024 07375 34 RxNorm MALIK CRAWFORD [address] [place], [address], [facility] [...] Available Not Available Not Available Flucelvax Quad 8244-6629 (PF) 60 mcg (15 mcg x 4)/0.5 [...] Updated DateTime 4 175.9 cm 41 kg/m2 490499. 86 g 103 /min 97 % 97 % 118 mm[Hg] 70 mm[Hg] Mesha Yasir [facility] 4 10:42:18 Date Recorded Body height Body mass index (BMI) Body weight Heart rate Oxygen saturation Oxygen saturation in Arterial blood by Pulse oximetry Systolic blood pressure Diastolic blood pressure Provider Name and Address Organization Details Last Updated DateTime 4 175.9 cm 39.6 kg/m2 003424. 94 g 80 /min 97 % 97 % 110 mm[Hg] 80 mm[Hg] Mesha Cooley [facility] 4 14:59:07 Social History Question Answer Notes LastModified by Organizat ion Details LastModified Time Tobacco Smoking Status Former Smoker Not Available [facility] 04/06/2020 03:36:23 What Was The Date Of Your Most Recent Tobacco Screening? 05/19/2024 [email or web address] Information not available 05/19/2024 How Many Years Have You Smoked Tobacco? 15 [id number] Information not available 04/06/2020 Do You Or Have You Ever Used Any Other Forms Of Tobacco Or Nicotine? No [email or web address] Information not available 01/08/2023 Sex: Unknown Functional Status None recorded. Mental Status None recorded. Family History Nothing Reported. Medical History Condition Response Coronary Artery Disease N Other N Gout N Kidney Stones N Blood Diseases N Breast Cancer N Blood Transfusion N Lung Disease N Depression N COPD [...] (ASD) N Immunizations Vaccine Type Date Status Note Provider Nam e and Address Organization Details Recorded Time COVID-19, mRNA, LNP-S, PF, 30 mcg/0.3 mL dose 1 completed MALIK CRAWFORD [address] [place] [address], [address] 02/04/2021 08:56:11 Influenza, split virus, quadrivalent, preservative 8 completed Margot quiñones [facility] 02/20/2018 13:30:16 COVID-19, mRNA, LNP-S, PF, 30 mcg/0.3 mL dose 1 completed Lucita quiñones [facility] 08/04/2022 08:41:41 COVID-19, mRNA, LNP-S, PF, 30 mcg/0.3 mL dose 1 completed Lucita quiñones [facility] 08/04/2022 08:41:48 COVID-19, mRNA, LNP-S, PF, 50 mcg/0.5 mL dose 2 completed Lucita quiñones [facility] 08/04/2022 08:42:54 influenza, unspecified formulation 1 completed Lucita quiñones [facility] 08/04/2022 08:43:12 influenza, unspecified formulation 2 completed Lucita quiñones [facility] 08/04/2022 08:43:20 SARS-COV-2 (COVID-19) vaccine, UNSPECIFIED 3 completed Sary quiñones [facility] 03/13/2023 08:30:31 Td(adult) unspecified formulation 8 [facility] 16:11:58 Influenza, split virus, quadrivalent, preservative 9 completed Gema Claudio [address], [address], [facility] 05/07/2019 15:19:17 Past Encounters Encounter ID Performer Location Encounter Start Date Encounter Closed Date Diagnosis/Indication Diagnosis SNOMED-CT Code Diagnosis ICD10 Code [id number] [place] [address] 02/26/2018 14:14:04 02/26/2018 15:04:51 Sleep apnea 12461487 G47.30 Impaired f asting glycemia 065025256 R73.01 Essential hypertension 26808254 I10 Body mass index 40+ - severely obese 129736844 Z68.[id number],[place] [address] 11/04/2018 14:26:06 11/04/2018 15:08:45 Adult health examination 863089772 Z00.00 Active or passive immunization 258078616 Z23 Body mass index 40+ - severely obese 563005083 Z68.42 Essential hypertension 49403737 I10 [id number] [facility] [address],[place] [address] 05/07/2019 14:51:37 05/07/2019 15:34:54 Essential hypertension 00087956 I10 Hyperlipidemia 12646056 E78.5 Impaired f asting glycemia 188190197 R73.01 Sleep apnea 05390843 G47 .30 [id number] MALIK CRAWF[facility] [address] [place] [address],[place] [address] 11/07/2019 10:51:45 11/07/2019 11:57:04 Adult health examination 715338311 Z00.00 Active or passive immunization 239135931 Z23 [id number] MALIK CRAWFORD [facility] [address] [place] [address],[place] [address] 08/03/2021 15:23:17 08/05/2021 10:11:30 Active or passive immunization 381145048 Z23 Adult heal th examination 360805167 Z00.00 Adult atte ntion deficit hyperactivity disorder 125159702 F90.1 [id number] MALIK CRAWFORD [facility] [address] [place] [address],[place] [address] 08/04/2022 15:13:30 08/07/2022 11:17:02 Active or passive immunization 561574168 Z23 Adult heal th examination 501604570 Z00.00 Impetigo 42938455 L01.01 [id number] MALIK CRAWFORD [facility] [address] [place] [address],[place] [address] 01/08/2023 10:19:05 01/08/2023 15:33:38 Essential hypertension 72458041 I10 Exercise-i nduced asthma 79140846 J45.990 Hyperlipidemia 47151281 E78.2 Anxiety 42892833 F41.1 [id number] MALIK CRAWFORD [facility] [address] [place] [address],[place] [address] 01/23/2023 07:55:09 01/23/2023 16:32:28 Anxiety 76707961 F41.1 Essential hypertension 69099020 I10 Exercise-i nduced asthma 70225815 J45.990 [id number] MALIK CRAWFORD [facility] [address] [facility],[place] [address] 01/23/2023 09:46:53 01/23/2023 10:17:42 Hypertensive urgency 384341335 I16.0 Attention deficit hyperactivity disorder 279925045 F90.0 Essential hypertension 77542177 I10 [id number] MALIK CRAWFORD [facility] [address] [facility],[place] [address] 02/13/2023 09:07:06 02/13/2023 16:23:31 Anxiety 50875579 F41.1 Attention deficit hyperactivity disorder 196057813 F90.0 Hypertensive urgency 443 237220 I16.0 [id number] MALIK CRAWFORD [facility] [address] [place] [address],[place] [address] 02/28/2023 16:11:21 02/28/2023 16:41:40 Anxiety 88451212 F41.1 Attention deficit hyperactivity disorder 388796987 F90.0 Essential hypertension 45177497 I10 [id number] MALIK CRAWFORD [facility] [address] [place] [address],[place] [facility] [place] [address] 08/10/2023 15:12:50 08/10/2023 16:23:33 Adult health examination 693010078 Z00.00 Essential hypertension 58432934 I10 Dysuria 23392816 R30.0 Venereal d isease screening 043547777 Z11.3 [id number] MALIK CRAWFORD [facility] [address] [place] [address],[place] [address] 09/14/2023 15:19:04 09/14/2023 16:03:44 Hypertensive urgency 243999527 I16.0 Essential hypertension 06315446 I10 Agoraphobia 84983752 F40 .00 Erectile dysfunction 860 298598 F52.21 [id number] MALIK CRAWFORD [facility] [address] [place] [address],[place] [address] 10/05/2023 15:46:23 10/08/2023 08:17:45 Depression screening 255430021 Z13.31 Essential hypertension 00213512 I10 [id number] MAILK CRAWFORD [facility] [address] [facility],[place] [address] 10/10/2023 16:26:17 10/10/2023 16:52:28 Essential hypertension 48107631 I10 [id number] MALIK CRAWFORD [facility] [address] [facility],[place] [address] 10/16/2023 10:28:41 10/16/2023 11:17:43 Essential hypertension 25899891 I10 Depression screening 171 446863 Z13.31 Hypertensi ve emergency 4529492356 62601 I16.1 [id number] MALIK CRAWFORD [facility] [address] [facility],[place] [address] 10/23/2023 16:06:08 10/24/2023 08:42:19 Hypertensive emergency 3857856320 12453 I16.1 Essential hypertension 70598127 I10 [id number] MALIK CRAWFORD [facility] [address] [facility],[place] [address] 11/05/2023 15:57:16 11/05/2023 16:57:57 Resistant hypertensive disorder 8743166383 39200 I1A.0 Essential hypertension 71408546 I10 [id number] MALIK CRAWFORD [facility] [address] [place] [address],[place] [address] 01/07/2024 10:28:58 01/07/2024 11:42:18 Attention deficit hyperactivity disorder 125037188 F90.0 Essential hypertension 63428600 I10 [id number] MALIK CRAWFORD [facility] [address] [place] [address],[place] [address] 02/11/2024 08:45:39 02/11/2024 11:03:47 Attention deficit hyperactivity disorder 816169585 F90.0 Anxiety 08608460 F41.1 Erectile dysfunction 860 605990 F52.21 [id number] MALIK CRAWFORD [facility] [address] [facility],[place] [address] 04/21/2024 09:58:32 04/21/2024 16:48:45 Attention deficit hyperactivity disorder 625002360 F90.0 Fatigue 15881279 R53.83 [id number] MALIK CRAWFORD [facility] [address] [facility],[place] [address] 05/07/2024 09:42:46 05/07/2024 10:51:36 Hypokalemia 06594976 E87.6 Attention deficit hyperactivity disorder 575507774 F90.0 Hypertensi ve emergency 5098955416 27490 I16.1 [id number] MALIK CRAWFORD [facility] [address] [facility],[place] [address] 05/19/2024 14:36:44 05/19/2024 15:33:28 Hypokalemia 92322841 E87.6 Venereal d isease screening 869747634 Z11.3 Essential hypertension 66794073 I10 Health Concerns Section Related Observation LastModified by Organization Detai ls LastModified Time None Recorded Concern Status LastModified by Organization Details LastModified Time None Recorded Advance Directives Directive None Recorded Payers Encounter Date Sequence Insurance Name Policy Number Policy Quan Covered Member ID Quan Member ID Guarantor Name 01/07/2024 1 [place] [id number] Priscilla Ames [id number] Ames 02/11/2024 1 [place] [id number] Priscilla Ames [id number] Jose Ames 04/21/2024 1 [place] [id number] Priscilla Ames [id number] Jose Ames 05/07/2024 1 [place] [id number] Priscilla Ames [id number] Jose Ames 05/19/2024 1 [place] [id number] Priscilla Ames [id number] Jose Mueller Kwaku Notes Date Note Type Note Provider Name and Address Organization Details Recorded Time 4 text/html f/u medication the patient is doing well with his BPhas stabilized with the medication adjustments and his US renal was normal HTN: today in the office the patient BP is 118/70 L arm sittingthe patient is doing well on the BP medication with no side effects and no adjustment of their medications needed today at the appointmentwell-control led on medicationdenies chest pain, sob, ankle swelling, [...] more easily agitated, very fidgety MALIK CRAWFORD [address] [place] [address], [place], [address], [facility] 01/07/2024 11:17:02 4 text/html f/u med adjustments The patient is participating in this appointment via telemedicine communication with a phone call/video calling service ([employer])The patient consents to use of these platforms [...] psychiatrist the patient has agreed to med vince with fu in three weeks after my return from vacation MALIK CRAWFORD [address] [facility], [place], [address], [facility] 02/11/2024 10:51:27 4 text/html follow-up [...] symptoms on and off before with low [id number] recheck levels will start on adderall for the ADHD symptoms, monitor BP, buproprion could have triggered to BP issues so would like to avoid restarting that and trial an alternative has been having hypotensive episodes here and there, BP has been excellent, most all readings are <120/80 MALIK CRAWFORD [address] [facility], [place], [address], [facility] 04/21/2024 16:24:32 4 text/html f.u [...] pharm fixed the prazosin script MALIK CRAWFORD [address] [place], [address], [facility] 05/07/2024 10:36:58 4 text/html f/u lab work and BP hypokalemia: agreed to adjust meds after kevin but will keep him on the potassium in the meantime and see how he does will cont meds as prescribedchlor would be the med that would need to be adjusted will recheck the lab work this week as well, has been holding the potassium STI screening for the patient, routine BP is excellent on current medications, do not want to take off one as his bp will jump up again MALIK CRAWFORD [address] [place], [address], [facility] 05/19/2024 15:30:26
--- OUTSIDE RECORDS SUMMARY | 2024-05-24 09:19 | XMS_ITS | Continuity of Care Document ---
Author Organization [place] - [facility], [facility] Address [address] [address] Assessment No assessment recorded. Plan of Treatment Reminders Order Date Submit Date Provider Last Modified By Organization Details Last Modified Time Details Appointments FOLLOW UP 15 2023 10:15A MALIK BLOOM Not available Not available Not available Lab RPR (rapid plasma reagin), serum 2023 [facility], [address] [place] [address], [address], 05/19/2024 15:25:15 HIV 1+2 AB + HIV 1 p24 Ag, qualitati ve immunoass ay, serum 2023 [facility], [address] [place] [address], [place], [address], 05/19/2024 15:25:15 CT + NG + TV, DNA, urine/swa b 2023 [facility], [address] [place] [address], [place], [address], 05/19/2024 15:25:15 hepatitis panel (A+B+C), acute, serum 2023 [facility], [address] [place] [address], [place], [address], 05/19/2024 15:25:15 BMP, serum or plasma 2023 [facility], [address], [place], [address], 05/19/2024 15:25:15 magnesium , serum or plasma 2023 [facility], [address], [place], [address], 05/19/2024 15:25:15 Referral None recorded. Procedures None recorded. Surgeries None recorded. Imaging None recorded. Medication Orders potassium chloride ER 20 mEq tablet,ex tended release 2023 [facility] #[id number], [address], [place], [address], 05/19/2024 15:24:01 Patient TargetsNo targets recorded. Patient InstructionsNo instructions recorded. Reason for Referral None Reported. 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, 1994 Not Available [facility] 3 14:13:30 Varicell a 59554102 Active 2017 Not Available [facility] 3 14:13:30 Migraine 68759741 Active 2017 Not Available [facility] 3 14:13:30 Exercise -induced asthma 98341261 Active 2017 Not Available [facility] 3 14:13:30 Seasonal affectiv e disorder 395448774 Active 2017 Not Available [facility] 3 14:13:30 Attentio n deficit hyperact ivity disorder 383194250 Active 2017 Not Available [facility] 3 14:13:31 Disorder of vision 95649546 Active 2017 corrected vision Not Available [facility] 3 14:13:31 Anxiety 19868727 Active 2017 Flight Not Available [facility] 3 14:13:31 Impaired fasting glycemia 758143394 Active 2017 Not Available [facility] 3 14:13:31 Essentia l hyperten jil 88725141 Active 2017 Not Available [facility] 3 14:13:31 Hyperlip idemia 36248590 Active 2017 Not Available [facility] 3 14:13:31 Sleep apnea 36449689 Active 2017 Not Available [facility] 3 14:13:31 Kidney stone 54701682 Active 2021 Not Available [facility] 3 14:13:31 Impetigo 76758540 Active 2022 Not Available [facility] 3 14:13:31 Hyperten sive urgency 175877363 Active 2022 Not Available [facility] 3 14:13:31 Dysuria 13297292 Active 2023 MALIK CRAWFORD [address] [place], [address], [facility] 4 15:37:51 Agorapho manjula 50554340 Active 2023 MALIK CRAWFORD [address] [place], [address], [facility] 4 15:56:51 Erectile dysfunct ion 128131522 Active 2023 MALIK CRAWFORD [address] [place], [address], [facility] 4 15:58:57 Hyperten sive emergenc y 36372608475 9104 Active 2023 MALIK CRAWFORD [address] [place], [address], [facility] 4 09:49:44 Resistan t hyperten sive disorder 94929192831 4109 Active 2023 MALIK CRAWFORD [address] [place], [address], [facility] Internal [facility] 4 11:20:24 Fatigue 80262218 Active 2023 MALIK CRAWFORD [address] [place], [address], [facility] Internal [facility] 4 16:17:42 Hypokale reina 32565016 Active 2023 MALIK CRAWFORD [address] [place], [place], , [facility] Internal [facility] 12:32:58 Problem Notes None recorded. Medical Equipment None Reported. Allergies Allergen ID Allergen Name Allergen Category Reaction Reaction Severity Criticality Documentation Date Start Date Code Code System Note Provider Name and Address Organization Details Recorded Time 8029 spironola ctone medicatio n Not available Not available Not available 10/16/2023 9997 RxNorm MALIK CRAWFORD [address] [place], [address], [facility] Internal [facility] 4 10:58:37 8030 labetalol medicatio n Not available Not available Not available 10/16/2023 6185 RxNorm MALIK CRAWFORD [address] [place], [address], [facility] 10:58:43 8531 vortioxet ine hydrobrom elder medicatio n Not available Not available Not available 04/21/2024 52465 34 RxNorm MALIK CRAWFORD [address] [place], [address], [facility] Internal [facility] 4 16:16:32 Medications Name Sig [...] Available Not Available Not Available Flucelvax Quad 3007-4477 (PF) 60 mcg (15 mcg x 4)/0.5 [...] Updated DateTime 4 175.9 cm 39.6 kg/m2 780798. 94 g 80 /min 97 % 97 % 110 mm[Hg] 80 mm[Hg] Mesha Huertamond [facility] 4 14:59:07 Social History Question Answer Notes LastModified by Organizat ion Details LastModified Time Tobacco Smoking Status Former Smoker Not Available [facility] 04/06/2020 03:36:23 What Was The Date Of Your Most Recent Tobacco Screening? 05/19/2024 [email or web address] Information not available 05/19/2024 How Many Years Have You Smoked Tobacco? 15 [id number] Information not available 04/06/2020 Do You Or Have You Ever Used Any Other Forms Of Tobacco Or Nicotine? No Information not available 01/08/2023 Sex: Unknown Functional [...] mcg/0.3 mL dose 1 completed MALIK CRAWFORD [address] [place] [address], [address], [facility] 02/04/2021 08:56:11 Influenza, split virus, quadrivalent, preservative 8 completed Margot quiñones [facility] 02/20/2018 13:30:16 COVID-19, mRNA, LNP-S, PF, 30 mcg/0.3 mL dose 1 completed Lucita quiñones [facility] 08/04/2022 08:41:41 COVID-19, mRNA, LNP-S, PF, 30 mcg/0.3 mL dose 1 completed Lucita quiñones [facility] 08/04/2022 08:41:48 COVID-19, mRNA, LNP-S, PF, 50 mcg/0.5 mL dose 2 completed Lucita quiñones [facility] 08/04/2022 08:42:54 influenza, unspecified formulation 1 completed Lucita Martinez [facility] 08/04/2022 08:43:12 influenza, unspecified formulation 2 [facility] 08:43:20 SARS-COV-2 (COVID-19) vaccine, UNSPECIFIED 3 completed Sary Borjas [facility] 03/13/2023 08:30:31 Td(adult) unspecified formulation 8 completed Margot Gama [facility] 11/01/2018 16:11:58 Influenza, split virus, quadrivalent, preservative 9 completed September ABHISHEK Snyder [address] [place] [address], [address], [facility] 05/07/2019 15:19:17 Past Encounters Encounter ID Performer Location Encounter Start Date Encounter Closed Date Diagnosis/Indication Diagnosis SNOMED-CT Code Diagnosis ICD10 Code [id number] MALIK CRAWFORD [facility] [address],[place] [address] 04/21/2024 09:58:32 04/21/2024 16:48:45 Attention deficit hyperactivity disorder 477378553 F90.0 Fatigue 28692894 R53.83 [id number] MALIK CRAWFORD [facility] [address],[place] [address] 05/07/2024 09:42:46 05/07/2024 10:51:36 Hypokalemia 86549708 E87.6 Attention deficit hyperactivity disorder 461104551 F90.0 Hypertensi ve emergency 7938967660 92990 I16.1 [id number] MALIK CRAWFORD [facility] [address] [facility] [address] 05/19/2024 14:36:44 05/19/2024 15:33:28 Hypokalemia 24075767 E87.6 Venereal d isease screening 345934104 Z11.3 Essential hypertension 46774039 I10 Health Concerns Section Related Observation LastModified by Organization Detai ls LastModified Time None Recorded Concern Status LastModified by Organization Details LastModified Time None Recorded Payers Encounter Date Sequence Insurance Name Policy Number Policy Quan Covered Member ID Quan Member ID Guarantor Name 05/19/2024 1 [place] [employer] [id number] Priscilla Ames [id number]es Notes Date Note Type Note Provider Name a nd Address Organization Details Recorded Time 4 text/html f/u lab work and BP [...] will jump up again MALIK CRAWFORD [address] [place], [address], [facility] 05/19/2024 15:30:26
--- OUTSIDE RECORDS SUMMARY | 2024-05-24 09:20 | XMS_ITS | Continuity of Care Document ---
Author Organization [facility], [facility] Address [address] [address] Assessment Encounter Date Assessment Date Assessment LastModified [...] Not available Not available Lab vitamin D, 25-hydro xy, total, serum 2023 [facility], [address] [place] [address], [id number], 05/02/2024 08:46:45 vitamin B12 + folate, serum or blood 2023 024 [facility], [address] [place] [address], [address], 05/02/2024 08:46:45 iron + TIBC + ferritin , serum 2023 024 [facility], [address] [place] [address], [address], 04/21/2024 16:19:58 CMP, serum or plasma 2023 024 [facility], [address] [place] [address], [id number], 05/02/2024 08:46:45 CBC w/ auto diff 2023 [facility], [address] [place] [address], [address], 04/21/2024 16:19:59 TSH + free T4, serum 2023 [facility], [address] [place] [address], [address], 05/02/2024 08:46:45 Referral None recorded . Procedures None recorded . Surgeries None recorded . Imaging None recorded . Medication Orders dextroam phetamin e-amphet amine 10 mg tablet 2023 [facility] #[id number], [address] [place], [address], 04/21/2024 16:17:34 Patient TargetsNo targets recorded. Patient InstructionsNo instructions recorded. Reason for Referral None Reported. Problems Name Problem SNOMED Code Status Onset Date Resolution Date Notes Provider Name and Address Organization Details Recorded Time History of depressi on 766228677 Active 2017 Depressiv e episode 6276-0790 Not Available [facility] 14:13:30 Meningit is 9788449 Active 2017 Not Available [facility] 14:13:31 Concussi on injury of brain 008063729 Active 2017, 1994 Not Available [facility] 3 14:13:30 Varicell a 67988731 Active 2017 Not Available [facility] 14:13:30 Migraine 92238511 Active 2017 Not Available [facility] 14:13:30 Exercise -induced asthma 46746618 Active 2017 Not Available [facility] 14:13:30 Seasonal affectiv e disorder 988382084 Active 2017 Not Available [facility] 14:13:30 Attentio n deficit hyperact ivity disorder 593678901 Active 2017 Not Available [facility] 3 14:13:31 Disorder of vision 18416436 Active 2017 corrected vision Not Available [facility] 3 14:13:31 Anxiety 79345303 Active 2017 Flight Not Available [facility] 3 14:13:31 Impaired fasting glycemia 550355481 Active 2017 Not Available [facility] 3 14:13:31 Essentia l hyperten jil 56457736 Active 2017 Not Available [facility] 3 14:13:31 Hyperlip idemia 96909425 Active 2017 Not Available [facility] 3 14:13:31 Sleep apnea 00341525 Active 2017 Not Available [facility] 3 14:13:31 Kidney stone 28342473 Active 2021 Not Available [facility] 3 14:13:31 Impetigo 50822357 Active 2022 Not Available [facility] 3 14:13:31 Hyperten sive urgency 194720774 Active 2022 Not Available [facility] 3 14:13:31 Dysuria 74146042 Active 2023 MALIK CRAWFORD [address] [place], [address], [facility] 4 15:37:51 Agorapho manjula 51193982 Active 2023 MALIK CRAWFORD [address] [place], [address], [facility] 4 15:56:51 Erectile dysfunct ion 810072012 Active 2023 MALIK CRAWFORD [address] [place], [address], [facility] 4 15:58:57 Hyperten sive emergenc y 47061512329 9104 Active 2023 MALIK CRAWFORD [address] [place], [address], [facility] 4 09:49:44 Resistan t hyperten sive disorder 26793205962 4109 Active 2023 MALIK CRAWFORD [address] [place], [address], [facility] 4 11:20:24 Fatigue 48916812 Active 2023 MALIK CRAWFORD [address] [place], [address], [facility] 4 16:17:42 Hypokale reina 75013159 Active 2023 MALIK CRAWFORD [address] [place] [address], [address], [facility] 4 12:32:58 Problem Notes None recorded. Medical Equipment None Reported. Allergies Allergen ID Allergen Name Allergen Category Reaction Reaction Severity Criticality Documentation Date Start Date Code Code System Note Provider Name and Address Organization Details Recorded Time 8029 spironola ctone medicatio n Not available Not available Not available 10/16/2023 9997 RxNorm MALIK CRAWFORD [address] [place] [address], [address], [facility] Internal [facility] 4 10:58:37 8030 labetalol medicatio n Not available Not available Not available 10/16/2023 6185 RxNorm MALIK CRAWFORD [address] [place] [address], [address], [facility] 4 10:58:43 8531 vortioxet ine hydrobrom elder medicatio n Not available Not available Not available 04/21/2024 72142 34 RxNorm MALIK CRAWFORD [address] [place] [address], [address], [facility] 4 16:16:32 Medications [...] Available Not Available Not Available Flucelvax Quad 2376-0867 (PF) 60 mcg (15 mcg x 4)/0.5 [...] Of Your Most Recent Tobacco Screening? 05/19/2024 [email or web address] Information not available 05/19/2024 How Many Years Have You Smoked Tobacco? 15 [id number] Information not available 04/06/2020 Do You Or Have You Ever Used Any Other Forms Of Tobacco Or Nicotine? No [email or web address] Information not available 01/08/2023 Sex: Unknown Functional [...] mcg/0.3 mL dose 1 completed MALIK CRAWFORD [address] [place] [address], [address] 02/04/2021 08:56:11 Influenza, split virus, quadrivalent, preservative 8 completed Margot quiñones [facility] 02/20/2018 13:30:16 COVID-19, mRNA, LNP-S, PF, 30 mcg/0.3 mL dose 1 completed Lucita quiñones [facility] 08/04/2022 08:41:41 COVID-19, mRNA, LNP-S, PF, 30 mcg/0.3 mL dose 1 completed [facility]/04/2022 08:41:48 COVID-19, mRNA, LNP-S, PF, 50 mcg/0.5 mL dose 2 completed Lucita Martinez [facility] 08/04/2022 08:42:54 influenza, unspecified formulation 1 completed Lucita Martinez [facility] 08/04/2022 08:43:12 influenza, unspecified formulation 2 completed Lucita Martinez [facility] 08/04/2022 08:43:20 SARS-COV-2 (COVID-19) vaccine, UNSPECIFIED 3 completed Sary Borjas [facility] 03/13/2023 08:30:31 Td(adult) unspecified formulation 8 completed Margot Gama [facility] 11/01/2018 16:11:58 Influenza, split virus, quadrivalent, preservative 9 completed September ABHISHEK Snyder [address] [place] [address], [address] 05/07/2019 15:19:17 Past Encounters Encounter ID Performer Location Encounter Start Date Encounter Closed Date Diagnosis/Indication Diagnosis SNOMED-CT Code Diagnosis ICD10 Code [id number] ENEDINA MCLAIN [facility] [address] [address] 04/21/2024 09:58:32 04/21/2024 16:48:45 Attention deficit hyperactivity disorder 704805424 F90.0 Fatigue 77324638 R53.83 Health Concerns Section Related Observation LastModified by Organization Detai ls LastModified Time None Recorded Concern Status LastModified by Organization Details LastModified Time None Recorded Payers Encounter Date Sequence Insurance Name Policy Number Policy Quan Covered Member ID Quan Member ID Guarantor Name 04/21/2024 1 [place]: [place] ([place]) [id number] Priscilla Ames [id number] Ames Notes Date Note Type Note Provider Name a nd Address Organization Details Recorded Time 04/21/2024 text/html [...] symptoms on and off before with low A81eahj recheck levels will start on adderall for the ADHD symptoms, monitor BP, buproprion could have triggered to BP issues so would like to avoid restarting that and trial an alternative has been having hypotensive episodes here and there, BP has been excellent, most all readings are <120/80 MALIK CRAWFORD [address] [place] [address], [place], [address], [facility] 04/21/2024 16:24:32
[2024-05-24 10:40] LABS: Anion Gap 10 (12-20); Blood Urea Nitrogen 11 mg/dL (9-16); Calcium 8.9 mg/dL (8.4-10.2); Carbon Dioxide 30 mmol/L (22-29); Chloride 103 mmol/L (96-108); Estimated Glomerular Filt Rate > 60; Glucose Random 110 mg/dL (60-115); Potassium 3.1 mmol/L (3.3-5.1); Sodium 140 mmol/L (135-145)
[2024-05-24 10:55] LABS: Syphilis Screen Nonreactive (Nonreactive)
[2024-05-24 10:59] LABS: HBS Num1 6.98 mIU/mL (0-7.99); HBc Num1 0.11 S/CO (0.00-0.79); HBsAGNum1 0.39 S/CO (0.00-0.99); HIV AB/AG Nonreactive (Nonreactive); HIV Num 1 0.08 S/CO (0.00-0.99); Hepatitis A Antibody IgM 0.19 Index (0-0.79); Hepatitis B Core Antibody Nonreactive (Nonreactive); Hepatitis B Surface Antigen Negative (Negative); ~HepC Num1 0.11 S/CO (0.00-0.79); ~Hepatitis A Antibody IgM Nonreactive (Nonreactive); ~Hepatitis B Surface Antibody NONREACTIVE (Nonreactive); ~Hepatitis C Antibody Nonreactive (Nonreactive)
[2024-05-24 13:51] LABS: CT PCR NOT DETECTED (Not Detect.); NG PCR NOT DETECTED (Not Detect.)
== END 2024-05-24 09:17 | disposition home or self-care (01) ==
LOC: HO.LAB 09:16
PROVIDERS: PCP Internal Medicine; Visit Provider Physician Assistant
DX: E87.6 Hypokalemia (principal); Z11.3 Encounter for screening for infections with a predominantly sexual mode of transmission
CPT/HCPCS: 80048; 83735; 86704; 86706; 86709; 86780; 86803; 87340; 87389; 87491; 87591

== ENCOUNTER 2024-06-06 14:50 | Outpatient (REF) | payer BC, SELFPAY ==
[2024-06-06 15:58] LABS: Anion Gap 10 (12-20); Blood Urea Nitrogen 12 mg/dL (9-16); Calcium 9.1 mg/dL (8.4-10.2); Carbon Dioxide 29 mmol/L (22-29); Chloride 102 mmol/L (96-108); Estimated Glomerular Filt Rate > 60; Glucose Random 109 mg/dL (60-115); Sodium 138 mmol/L (135-145)
--- OUTSIDE RECORDS SUMMARY | 2024-06-06 16:11 | XMS_ITS | Data Portability ---
Author Organization [facility] Service Address [address] [place] [address] Assessment Encounter Date Assessment Date Assessment LastModified [...] Modified Time Details Appointments FOLLOW UP 15 2024 04:15P MALIK BLOOM Not available Not available Not available Lab vitamin D, 25-hydrox y, total, serum 2023 [facility], [address] [place] [address], [address], 05/02/2024 08:46:45 vitamin B12 + folate, serum or blood 2023 024 [facility], [address] [place] [address], [address], 05/02/2024 08:46:45 iron + TIBC + ferritin, serum 2023 024 [facility], [address] [place] [address], [address], 04/21/2024 16:19:58 CMP, serum or plasma 2023 024 [facility], [address] [place] [address], [address], 05/02/2024 08:46:45 CBC w/ auto diff 2023 024 [facility], [address] [place] [address], [address], 04/21/2024 16:19:59 TSH + free T4, serum 2023 024 [facility], [address] [place] [address], [address], 05/02/2024 08:46:45 CMP, serum or plasma 2023 024 [facility], [address] [place] [address], [address], 05/08/2024 11:39:49 RPR (rapid plasma reagin), serum 2023 024 [facility], [address] [place] [address], [address], 05/19/2024 15:25:15 HIV 1+2 AB + HIV 1 p24 Ag, qualitati ve immunoass ay, serum 2023 024 [facility], [address] [place] [address], [address], 05/19/2024 15:25:15 CT + NG + TV, DNA, urine/swa b 2023 024 [facility], [address] [place] [address], [address], 05/19/2024 15:25:15 hepatitis panel (A+B+C), acute, serum 2023 [facility], [address] [place] [address], [place], [address], 05/19/2024 15:25:15 BMP, serum or plasma 2023 [facility], [address] [place] [address], [address], 05/26/2024 11:25:14 magnesium , serum or plasma 2023 [facility], [address] [place] [address], [place], [address], 05/19/2024 15:25:15 Referral None recorded. Procedures None recorded. Surgeries None recorded. Imaging None recorded. Medication Orders tadalafil 20 mg tablet 2023 024 [facility] #[id number], [address] [place], [address], 02/11/2024 10:46:32 Trintelli x 5 mg tablet [id number] [address] [place], [address], 04/21/2024 16:12:11 dextroamp hetamine- amphetami ne 10 mg tablet 2023 024 [facility] #[id number], [address] [place], [address], 04/21/2024 16:17:34 prazosin 1 mg capsule 2023 024 [facility] #[id number], [address] [place], [address], 05/07/2024 10:32:27 dextroamp hetamine- amphetami ne 10 mg tablet 2023 024 [facility] #[id number], [address] [place], [address], 05/07/2024 10:32:28 potassium chloride ER 20 mEq tablet,ex tended release 2023 [facility] #[id number], [address] [place], [address], 05/19/2024 15:24:01 Patient TargetsNo targets recorded. Patient InstructionsNo instructions recorded. Reason for Referral None Reported. Results Created Date Observation Date Name Description Value Unit Range Abnormal Flag Note LastModifiedBy Organization Detail LastModifiedTime Result Notes None recorded. 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, 1994 Not Available [facility] 3 14:13:30 Varicell a 48404621 Active 2017 Not Available [facility] 3 14:13:30 Migraine 55990615 Active 2017 Not Available [facility] 3 14:13:30 Exercise -induced asthma 42175638 Active 2017 Not Available [facility] 3 14:13:30 Seasonal affectiv e disorder 471379903 Active 2017 Not Available [facility] 3 14:13:30 Attentio n deficit hyperact ivity disorder 387080241 Active 2017 Not Available [facility] 3 14:13:31 Disorder of vision 15657380 Active 2017 corrected vision Not Available [facility] 3 14:13:31 Anxiety 29661633 Active 2017 Flight Not Available [facility] 3 14:13:31 Impaired fasting glycemia 393509509 Active 2017 Not Available [facility] 3 14:13:31 Essentia l hyperten jil 31502285 Active 2017 Not Available [facility] 3 14:13:31 Hyperlip idemia 81224730 Active 2017 Not Available [facility] 3 14:13:31 Sleep apnea 01644806 Active 2017 Not Available [facility] 3 14:13:31 Kidney stone 49805306 Active 2021 Not Available [facility] 3 14:13:31 Impetigo 67968693 Active 2022 Not Available [facility] 3 14:13:31 Hyperten sive urgency 344700207 Active 2022 Not Available [facility] 3 14:13:31 Dysuria 65629122 Active 2023 MALIK CRAWFORD [address] [place], [address], [facility] 4 15:37:51 Agorapho manjula 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 Active 2023 MALIK CRAWFORD [address] [place], [address], [facility] 4 15:56:51 Erectile dysfunct ion 223270962 Active 2023 MALIK CRAWFORD [address] [place], [address], [facility] 4 15:58:57 Hyperten sive emergenc y 48009607505 9104 Active 2023 MALIK CRAWFORD [address] [place], [address], [facility] 4 09:49:44 Resistan t hyperten sive disorder 84338632539 4109 Active 2023 MALIK CRAWFORD [address] [place], [address], [facility] 4 11:20:24 Fatigue 50337328 Active 2023 MALIK CRAWFORD [address] [place], [address], [facility] Internal [facility] 4 16:17:42 Hypokale reina 69920070 Active 2023 MALIK CRAWFORD [address] [place], [address], [facility] Internal [facility] 4 12:32:58 Problem Notes None recorded. Medical Equipment None Reported. Allergies Allergen ID Allergen Name Allergen Category Reaction Reaction Severity Criticality Documentation Date Start Date Code Code System Note Provider Name and Address Organization Details Recorded Time 8029 spironola ctone medicatio n Not available Not available Not available 10/16/2023 9997 RxNorm MALIK CRAWFORD [address] [place], [address], [facility] 4 10:58:37 8030 labetalol medicatio n Not available Not available Not available 10/16/2023 6185 RxNorm MALIK CRAWFORD [address] [place], [address], [facility] 4 10:58:43 8531 vortioxet ine hydrobrom elder medicatio n Not available Not available Not available 04/21/2024 03211 34 RxNorm MALIK CRAWFORD [address] [place], [address], [facility] Internal [facility] 4 16:16:32 Medications Name Sig Start Date [...] day by oral route for 90 days. active Not Available Not Available No t Available dextroamphe tamine-amph etamine 10 mg tablet Take [...] directed for 30 days, for hypokalem ia. active Not Available [...] Updated DateTime 4 175.9 cm 39.6 kg/m2 069279. 94 g 80 /min 97 % 97 % 110 mm[Hg] 80 mm[Hg] [facility] 4 14:59:07 Date Recorded Body height Body mass index (BMI) Body weight Heart rate Oxygen saturation Oxygen saturation in Arterial blood by Pulse oximetry Systolic blood pressure Diastolic blood pressure Provider Name and Address Organization Details Last Updated DateTime 4 175.9 cm 39.6 kg/m2 120824. 94 g 80 /min 97 % 97 % 130 mm[Hg] 70 mm[Hg] Mesha Cooley [facility] 4 10:33:28 Social History Question Answer Notes LastModified by Organizat ion Details LastModified Time Tobacco Smoking Status Former Smoker Not Available [facility] 04/06/2020 03:36:23 What Was The Date Of Your Most Recent Tobacco Screening? 05/26/2024 [email or web address] Information not available 05/26/2024 How Many Years Have You Smoked Tobacco? 15 [id number] Information not available 04/06/2020 Do You Or Have You Ever Used Any Other Forms Of Tobacco Or Nicotine? No [email or web address] Information not available 01/08/2023 Sex: Unknown Functional [...] mcg/0.3 mL dose 1 completed MALIK CRAWFORD [address] [place] [address], [address], [facility] 02/04/2021 08:56:11 Influenza, split virus, quadrivalent, preservative 8 completed Margot quiñones [facility] 02/20/2018 13:30:16 COVID-19, mRNA, LNP-S, PF, 30 mcg/0.3 mL dose 1 completed Lucita quiñones [facility] 08/04/2022 08:41:41 COVID-19, mRNA, LNP-S, PF, 30 mcg/0.3 mL dose 1 completed Lucita quiñones [facility] 08/04/2022 08:41:48 COVID-19, mRNA, LNP-S, PF, 50 mcg/0.5 mL dose 2 completed Lucita Martinez [facility] 08/04/2022 08:42:54 influenza, unspecified formulation 1 completed Lucita Martinez [facility] 08/04/2022 08:43:12 influenza, unspecified formulation 2 completed Lucita quiñones [facility] 08/04/2022 08:43:20 SARS-COV-2 (COVID-19) vaccine, UNSPECIFIED 3 completed Sary Brojas [facility] 03/13/2023 08:30:31 Td(adult) unspecified formulation 8 [facility]2018 16:11:58 Influenza, split virus, quadrivalent, preservative 9 completed September ABHISHEK Snyder [address] [place] [address], [address], [facility] Internal [facility] 05/07/2019 15:19:17 Past Encounters Encounter ID Performer Location Encounter Start Date Encounter Closed Date Diagnosis/Indication Diagnosis SNOMED-CT Code Diagnosis ICD10 Code [id number] September [facility] [address],[place] [address] 02/26/2018 14:14:04 02/26/2018 15:04:51 Sleep apnea 30079862 G47.30 Impaired f asting glycemia 991614629 R73.01 Essential hypertension 91928780 I10 Body mass index 40+ - severely obese 621450075 Z68.42 [id number] [facility] [address] [facility],[place] [address] 11/04/2018 14:26:06 11/04/2018 15:08:45 Adult health examination 368648041 Z00.00 Active or passive immunization 572441332 Z23 Body mass index 40+ - severely obese 715844334 Z68.42 Essential hypertension 34183097 I10 [id number] [facility] [address] [facility],[place] [address] 05/07/2019 14:51:37 05/07/2019 15:34:54 Essential hypertension 61825008 I10 Hyperlipidemia 23709633 E78.5 Impaired f asting glycemia 784531467 R73.01 Sleep apnea 24191198 G47 .30 [id number] MALIK CRAWFORD [facility] [address] [place] [address],[place] [address] 11/07/2019 10:51:45 11/07/2019 11:57:04 Adult health examination 421250894 Z00.00 Active or passive immunization 808519784 Z23 [id number] MALIK CRAWFORD [facility] [address] [place] [address],[place] [address] 08/03/2021 15:23:17 08/05/2021 10:11:30 Active or passive immunization 663891185 Z23 Adult heal th examination 162522770 Z00.00 Adult atte ntion deficit hyperactivity disorder 833466258 F90.1 [id number] MALIK CRAWFORD [facility] [address] [place] [address],[place] [address] 08/04/2022 15:13:30 08/07/2022 11:17:02 Active or passive immunization 339522872 Z23 Adult heal th examination 783550503 Z00.00 Impetigo 68709280 L01.01 [id number] MALIK CRAWFORD [facility] [address] [place] [address],[place] [address] 01/08/2023 10:19:05 01/08/2023 15:33:38 Essential hypertension 56630233 I10 Exercise-i nduced asthma 47535833 J45.990 Hyperlipidemia 42140577 E78.2 Anxiety 01112854 F41.1 [id number] MALIK CRAWFORD [facility] [address] [facility],[place] [address] 01/23/2023 07:55:09 01/23/2023 16:32:28 Anxiety 22154450 F41.1 Essential hypertension 17518164 I10 Exercise-i nduced asthma 82325850 J45.990 [id number] MALIK CRAWFORD [facility] [address] [facility],[place] [address] 01/23/2023 09:46:53 01/23/2023 10:17:42 Hypertensive urgency 131147220 I16.0 Attention deficit hyperactivity disorder 831927506 F90.0 Essential hypertension 09266195 I10 [id number] MALIK CRAWFORD [facility] [address] [facility],[place] [address] 02/13/2023 09:07:06 02/13/2023 16:23:31 Anxiety 20219762 F41.1 Attention deficit hyperactivity disorder 243369765 F90.0 Hypertensive urgency 443 330108 I16.0 [id number] MALIK CRAWFORD [facility] [address] [facility],[place] [address] 02/28/2023 16:11:21 02/28/2023 16:41:40 Anxiety 06834150 F41.1 Attention deficit hyperactivity disorder 951170480 F90.0 Essential hypertension 95894224 I10 [id number] MALIK CRAWFORD [facility] [address] [place] [address],[place] [address] 08/10/2023 15:12:50 08/10/2023 16:23:33 Adult health examination 713921442 Z00.00 Essential hypertension 51842378 I10 Dysuria 45531448 R30.0 Venereal d isease screening 817993963 Z11.3 [id number] MALIK CRAWFORD [facility] [address] [facility],[place] [address] 09/14/2023 15:19:04 09/14/2023 16:03:44 Hypertensive urgency 228880653 I16.0 Essential hypertension 35877809 I10 Agoraphobia 33324813 F40 .00 Erectile dysfunction 860 663556 F52.21 [id number] MALIK CRAWFORD [facility] [address] [facility],[place] [address] 10/05/2023 15:46:23 10/08/2023 08:17:45 Depression screening 972241018 Z13.31 Essential hypertension 22254729 I10 [id number] MALIK CRAWFORD [facility] [address] [place] [address],[place] [address] 10/10/2023 16:26:17 10/10/2023 16:52:28 Essential hypertension 30700842 I10 [id number] MALIK CRAWFORD [facility] [address] [facility],[place] [address] 10/16/2023 10:28:41 10/16/2023 11:17:43 Essential hypertension 71807081 I10 Depression screening 171 388791 Z13.31 Hypertensi ve emergency 4030742107 11774 I16.1 [id number] MALIK CRAWFORD [facility] [address] [place] [address],[place] [address] 10/23/2023 16:06:08 10/24/2023 08:42:19 Hypertensive emergency 8863638326 67143 I16.1 Essential hypertension 51130777 I10 [id number] MALIK CRAWFORD [facility] [address] [place] [address],[place] [address] 11/05/2023 15:57:16 11/05/2023 16:57:57 Resistant hypertensive disorder 7238082424 66730 I1A.0 Essential hypertension 39058079 I10 [id number] MALIK CRAWFORD [facility] [address] [place] [address],[place] [address] 01/07/2024 10:28:58 01/07/2024 11:42:18 Attention deficit hyperactivity disorder 141100820 F90.0 Essential hypertension 08852028 I10 [id number] MALIK CRAWFORD [facility] [address] [facility],[place] [address] 02/11/2024 08:45:39 02/11/2024 11:03:47 Attention deficit hyperactivity disorder 366924252 F90.0 Anxiety 79720432 F41.1 Erectile dysfunction 860 046701 F52.21 [id number] MALIK CRAWFORD [facility] [address] [facility],[place] [address] 04/21/2024 09:58:32 04/21/2024 16:48:45 Attention deficit hyperactivity disorder 143251483 F90.0 Fatigue 12553931 R53.83 [id number] MALIK CRAWFORD [facility] [address] [place] [address],[place] [address] 05/07/2024 09:42:46 05/07/2024 10:51:36 Hypokalemia 75602018 E87.6 Attention deficit hyperactivity disorder 697361210 F90.0 Hypertensi ve emergency 0782702844 88633 I16.1 [id number] MALIK CRAWFORD [facility] [address] [place] [address],[place] [address] 05/19/2024 14:36:44 05/19/2024 15:33:28 Hypokalemia 99648252 E87.6 Venereal d isease screening 106610530 Z11.3 Essential hypertension 43731507 I10 [id number] MALIK CRAWFORD [facility] [address] [place] [address],[place] [address] 05/26/2024 10:20:03 05/26/2024 11:02:04 Depression screening 943193276 Z13.31 Essential hypertension 90845792 I10 Health Concerns Section Related Observation LastModified by Organization Detai ls LastModified Time None Recorded Concern Status LastModified by Organization Details LastModified Time None Recorded Advance Directives Directive None Recorded Payers Encounter Date Sequence Insurance Name Policy Number Policy Quan Covered Member ID Quan Member ID Guarantor Name 02/11/2024 1 [place] [id number] Priscilla Ames [id number] Ames 04/21/2024 1 [place] [id number] Priscilla Ames [id number] Ames 05/07/2024 1 [place] [id number] Priscilla Ames [id number] [address] Ames 05/19/2024 1 [place] [id number] Priscilla Ames [id number] [address] Ames 05/26/2024 1 [place] [id number] Priscilla Ames [id number] [address] Ames Notes Date Note Type Note Provider Name and Address Organization Details Recorded Time 4 text/html f/u med adjustments The patient is participating in this appointment via telemedicine communication with a phone call/video calling service ([employer])The patient consents to use of these platforms [...] psychiatrist the patient has agreed to med [facility] with fu in three weeks after my return from vacation MALIK CRAWFORD [address] [facility], [place], [address], [facility] 02/11/2024 10:51:27 4 text/html follow-up [...] symptoms on and off before with low B79orfi recheck levels will start on adderall for the ADHD symptoms, monitor BP, buproprion could have triggered to BP issues so would like to avoid restarting that and trial an alternative has been having hypotensive episodes here and there, BP has been excellent, most all readings are <120/80 MALIK CRAWFORD [address] [facility], [place], [address], [facility] 04/21/2024 16:24:32 4 text/html f.u [...] fixed the prazosin script MALIK CRAWFORD [address] [place], [address], [facility] 05/07/2024 10:36:58 4 text/html f/u [...] will jump up again MALIK CRAWFORD [address] [place], [address], [facility] 05/19/2024 15:30:26 4 text/html 1 week f/u BP is stable todaywe did not adjust his medications, waiting until after the holidaysare monitoring his BP and his potassium levels currently on low dose of potassium since he had developed hypokalemia on his current medication depression screening negative HTN: it was 130/70 L arm sitting MALIK CRAWFORD [address] [place], [address], [facility] 05/26/2024 11:01:20
--- OUTSIDE RECORDS SUMMARY | 2024-06-06 16:11 | XMS_ITS | Continuity of Care Document ---
Author Organization [facility], [facility] Address [address] [place] [address] Assessment No assessment recorded. Plan of Treatment Reminders Order Date Submit Date Provider Last Modified By Organization Details Last Modified Time Details Appointments FOLLOW UP 15 2024 04:15P M MALIK CRAWFORD Not available Not available Not available Lab None recorded . Referral None recorded . Procedures None recorded . Surgeries None recorded . Imaging None recorded . Medication Orders None recorded . Patient TargetsNo targets recorded. Patient InstructionsNo instructions recorded. Reason for Referral None Reported. 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, 1994 Not Available [facility] 3 14:13:30 Varicell a 64905865 Active 2017 Not Available [facility] 14:13:30 Migraine 50398197 Active 2017 Not Available [facility] 14:13:30 Exercise -induced asthma 85296322 Active 2017 Not Available [facility] 14:13:30 Seasonal affectiv e disorder 346949003 Active 2017 Not Available [facility] 14:13:30 Attentio n deficit hyperact ivity disorder 103920883 Active 2017 Not Available [facility] 3 14:13:31 Disorder of vision 33713490 Active 2017 corrected vision Not Available [facility] 3 14:13:31 Anxiety 60247633 Active 2017 Flight Not Available [facility] 3 14:13:31 Impaired fasting glycemia 897882746 Active 2017 Not Available [facility] 3 14:13:31 Essentia l hyperten jil 58694814 Active 2017 Not Available [facility] 3 14:13:31 Hyperlip idemia 72681491 Active 2017 Not Available [facility] 3 14:13:31 Sleep apnea 87998039 Active 2017 Not Available [facility] 3 14:13:31 Kidney stone 05149169 Active 2021 Not Available [facility] 3 14:13:31 Impetigo 53720975 Active 2022 Not Available [facility] 3 14:13:31 Hyperten sive urgency 099953529 Active 2022 Not Available [facility] 3 14:13:31 Dysuria 68776478 Active 2023 MALIK CRAWFORD [address] [place], [address], [facility] 4 15:37:51 Agorapho manjula 96519920 Active 2023 MALIK CRAWFORD [address] [place], [address], [facility] 4 15:56:51 Erectile dysfunct ion 306380444 Active 2023 MALIK CRAWFORD [address] [place], [address], [facility] 4 15:58:57 Hyperten sive emergenc y 57468517128 9104 Active 2023 MALIK CRAWFORD [address] [place], [address], [facility] 4 09:49:44 Resistan t hyperten sive disorder 79158453819 4109 Active 2023 MALIK CRAWFORD [address] [place], [address], [facility] 4 11:20:24 Fatigue 47195056 Active 2023 MALIK CRAWFORD [address] [place], [address], [facility] 4 16:17:42 Hypokale reina 88842584 Active 2023 MALIK CRAWFORD [address] [place] [address], [address], [facility] 4 12:32:58 Problem Notes None recorded. Medical Equipment None Reported. Allergies Allergen ID Allergen Name Allergen Category Reaction Reaction Severity Criticality Documentation Date Start Date Code Code System Note Provider Name and Address Organization Details Recorded Time 8029 spironola ctone medicatio n Not available Not available Not available 10/16/2023 9997 RxNorm MALIK CRAWFORD [address] [place] [address], [address], [facility] Internal [facility] 4 10:58:37 8030 labetalol medicatio n Not available Not available Not available 10/16/2023 6185 RxNorm MALIK CRAWFORD [address] [place] [address], [address], [facility] 4 10:58:43 8531 vortioxet ine hydrobrom elder medicatio n Not available Not available Not available 04/21/2024 08635 34 RxNorm MALIK CRAWFORD [address] [place] [address], [address], [facility] 4 16:16:32 [...] Available Not Available Not Available Flucelvax Quad 7249-5388 (PF) 60 mcg (15 mcg x 4)/0.5 [...] Updated DateTime 4 175.9 cm 39.6 kg/m2 637774. 94 g 80 /min 97 % 97 % 130 mm[Hg] 70 mm[Hg] Mesha Cooley [facility] 4 10:33:28 Social History Question Answer Notes LastModified by Organizat ion Details LastModified Time Tobacco Smoking Status Former Smoker Not Available [facility] 04/06/2020 03:36:23 What Was The Date Of Your Most Recent Tobacco Screening? 05/26/2024 [email or web address] Information not available 05/26/2024 How Many Years Have You Smoked Tobacco? 15 [id number] Information not available 04/06/2020 Do You Or Have You Ever Used Any Other Forms Of Tobacco Or Nicotine? No Information not available 01/08/2023 Sex: Unknown Functional Status None recorded. Mental Status None recorded. Family History Nothing Reported. Medical History Condition Response Coronary Artery Disease N Other N Gout N Kidney Stones N Blood Diseases N Blood Transfusion N COPD N Depression N Anxiety Disorder N Muscle, Joint, or Bone Problems N Obesity N Vision or Eye Problems N Arthritis N Infertility N Polyps N Mental Disorder N Cancer N Stroke N Varicosities N Fibromyalgia N Headaches N Kidney Disease N Heart Problems N Hospitalizations N Skin Problems N Eating Disorder N MRSA exposure N Constipation N Tuberculosis N Asthma N Hepatitis N Pulmonary Embolism N Chicken Pox N Autism Spectrum Disorder (ASD) N Breast Cancer N Lung Disease N Defects or Inherited Disease N Endometriosis N Bladder or Kidney Problems N High Cholesterol N Liver Disease N Allergies/Hayfever N Thyroid Problems N GI Problems N Anemia N Mental Illness N Ovarian Cancer N Diabetes N Seizures/Epilepsy N Congestive Heart Failure (CHF) N Eczema N Diverticulitis N Abuse/Domestic Violence N Reflux/GERD N Heart Disease N Hypertension N Osteoporosis N Immunizations Vaccine Type Date Status Note Provider Nam e and Address Organization Details Recorded Time COVID-19, mRNA, LNP-S, PF, 30 mcg/0.3 mL dose 1 completed MALIK CRAWFORD [address] [place] [address], [address], [facility] 02/04/2021 08:56:11 Influenza, split virus, quadrivalent, preservative 8 completed Margot quiñones [facility] 02/20/2018 13:30:16 COVID-19, mRNA, LNP-S, PF, 30 mcg/0.3 mL dose 1 completed Lucita quiñones [facility] 08/04/2022 08:41:41 COVID-19, mRNA, LNP-S, PF, 30 mcg/0.3 mL dose 1 completed Lucita quiñones [facility] 08/04/2022 08:41:48 COVID-19, mRNA, LNP-S, PF, 50 mcg/0.5 mL dose 2 completed Lucita Martinez [facility] 08/04/2022 08:42:54 influenza, unspecified formulation 1 completed Lucita quiñones [facility] 08/04/2022 08:43:12 influenza, unspecified formulation 2 completed Lucita quiñones [facility] 08/04/2022 08:43:20 SARS-COV-2 (COVID-19) vaccine, UNSPECIFIED 3 completed Sary Borjas [facility] 03/13/2023 08:30:31 Td(adult) unspecified formulation 8 [facility] 16:11:58 Influenza, split virus, quadrivalent, preservative 9 completed September ABHISHEK Snyder [address] [place] [address], [address], [facility] 05/07/2019 15:19:17 Past Encounters Encounter ID Performer Location Encounter Start Date Encounter Closed Date Diagnosis/Indication Diagnosis SNOMED-CT Code Diagnosis ICD10 Code [id number] MALIK CRAWFORD [facility] [address] [place] [address],[place] [address] 05/07/2024 09:42:46 05/07/2024 10:51:36 Hypokalemia 06626888 E87.6 Attention deficit hyperactivity disorder 565843752 F90.0 Hypertensi ve emergency 9911002488 10750 I16.1 [id number] MALIK CRAWFORD [facility] [address] [address] 05/19/2024 14:36:44 05/19/2024 15:33:28 Hypokalemia 03693045 E87.6 Venereal d isease screening 422051944 Z11.3 Essential hypertension 25589780 I10 [id number] MALIK CRAWFORD [facility] [address],[place] [address] 05/26/2024 10:20:03 05/26/2024 11:02:04 Depression screening 924688256 Z13.31 Essential hypertension 97610147 I10 Health Concerns Section Related Observation LastModified by Organization Detai ls LastModified Time None Recorded Concern Status LastModified by Organization Details LastModified Time None Recorded Payers Encounter Date Sequence Insurance Name Policy Number Policy Quan Covered Member ID Quan Member ID Guarantor Name 05/26/2024 1 [place] [id number] Priscilla Ames [id number] Ames Notes Date Note Type Note Provider Name a sc Address Organization Details Recorded Time 05/26/2024 text/html 1 week f/u BP is stable todaywe did not adjust his medications, waiting until after the holidaysare monitoring his BP and his potassium levels currently on low dose of potassium since he had developed hypokalemia on his current medication depression screening negative HTN: it was 130/70 L arm sitting MALIK CRAWFORD [address] [place] [address], [address], [facility] 05/26/2024 11:01:20
--- OUTSIDE RECORDS SUMMARY | 2024-06-06 16:12 | XMS_ITS | Continuity of Care Document ---
Author Organization [facility] Internal Medicine, [facility] Address [address] [place] [address] Assessment Encounter Date Assessment Date Assessment LastModified [...] available Lab CMP, serum or plasma 2023 [facility], [address] [place] [address], [address], 05/08/2024 11:39:49 Referral None recorded. Procedures None recorded. Surgeries None recorded. Imaging None recorded. Medication Orders prazosin 1 mg capsule 2023 [id number], [address] [place], [address], 05/07/2024 10:32:27 dextroamp hetamine- amphetami ne 10 mg tablet 2023 [id number], [address] [place], [address], 05/07/2024 10:32:28 Patient TargetsNo targets recorded. Patient InstructionsNo instructions recorded. Reason for Referral None Reported. Problems Name Problem SNOMED Code Status Onset Date Resolution Date Notes Provider Name and Address Organization Details Recorded Time History of depressi on 408635914 Active 2017 Depressiv e episode 3360-8086 Not Available [facility] 3 14:13:30 Meningit is 4183564 Active 2017 Not Available [facility] 3 14:13:31 Concussi on injury of brain 973334062 Active 2017, 1994 Not Available [facility] 3 14:13:30 Varicell a 44363025 Active 2017 Not Available [facility] 3 14:13:30 Migraine 23667099 Active 2017 Not Available [facility] 3 14:13:30 Exercise -induced asthma 55329729 Active 2017 Not Available [facility] 3 14:13:30 Seasonal affectiv e disorder 233056245 Active 2017 Not Available [facility] 3 14:13:30 Attentio n deficit hyperact ivity disorder 620414661 Active 2017 Not Available [facility] 3 14:13:31 Disorder of vision 29823868 Active 2017 corrected vision Not Available [facility] 3 14:13:31 Anxiety 44945388 Active 2017 Flight Not Available [facility] 3 14:13:31 Impaired fasting glycemia 221092774 Active 2017 Not Available [facility] 3 14:13:31 Essentia l hyperten jil 04900027 Active 2017 Not Available [facility] 3 14:13:31 Hyperlip idemia 03924925 Active 2017 Not Available [facility] 3 14:13:31 Sleep apnea 34006699 Active 2017 Not Available [facility] 3 14:13:31 Kidney stone 15418217 Active 2021 Not Available [facility] 3 14:13:31 Impetigo 58164068 Active 2022 Not Available [facility] 3 14:13:31 Hyperten sive urgency 823386265 Active 2022 Not Available [facility] 3 14:13:31 Dysuria 51399975 Active 2023 MALIK CRAWFORD [address] [place] [address], [address], [facility] [place] 4 15:37:51 Agorapho manjula 39835328 Active 2023 MALIK CRAWFORD [address] [place] [address], [address], [facility] [place] 4 15:56:51 Erectile dysfunct ion 478362341 Active 2023 MALIK CRAWFORD [address] [place] [address], [address], [facility] [place] 4 15:58:57 Hyperten sive emergenc y 34080130959 9104 Active 2023 MALIK CRAWFORD [address] [place] [address], [address], [facility] [place] 4 09:49:44 Resistan t hyperten sive disorder 72533981558 4109 Active 2023 MALIK CRAWFORD [address] [place] [address], [address], [facility] [place] 4 11:20:24 Fatigue 96946041 Active 2023 MALIK CRAWFORD [address] [place] [address], [address], [facility] [place] 4 16:17:42 Hypokale reina 88114079 Active 2023 MALIK CRAWFORD [address] [place] [address], [address], [facility] [place] 4 12:32:58 Problem Notes None recorded. Medical Equipment None Reported. Allergies Allergen ID Allergen Name Allergen Category Reaction Reaction Severity Criticality Documentation Date Start Date Code Code System Note Provider Name and Address Organization Details Recorded Time 8029 spironola ctone medicatio n Not available Not available Not available 10/16/2023 9997 RxNorm MALIK CRAWFORD [address] [place], [address], [facility] [place] 4 10:58:37 8030 labetalol medicatio n Not available Not available Not available 10/16/2023 6185 RxNorm MALIK CRAWFORD [address] [place], [address], [facility] [place] 4 10:58:43 8531 vortioxet ine hydrobrom elder medicatio n Not available Not available Not available 04/21/2024 82650 34 RxNorm ENEDINA MCLAIN, MALIK [address] [place], [address], [facility] [place] 4 16:16:32 Medications Name Sig [...] Tobacco Smoking Status Former Smoker Not Available [facility] 04/06/2020 03:36:23 What Was The Date Of Your Most Recent Tobacco Screening? 05/26/2024 Information not available 05/26/2024 How Many Years Have You Smoked Tobacco? 15 [id number] Information not available 04/06/2020 Do You Or Have You Ever Used Any Other Forms Of Tobacco Or Nicotine? No [email or web address] Information not available 01/08/2023 Sex: Unknown Functional Status None recorded. Mental Status None recorded. Family History Nothing Reported. Medical History Condition Response Coronary Artery Disease N Other N Gout N Kidney Stones N Blood Diseases N Breast Cancer N Blood Transfusion N Depression N COPD N Lung Disease [...] PF, 30 mcg/0.3 mL dose 1 completed ENEDINA MCLAIN [address], [address], [facility] [place] 02/04/2021 08:56:11 Influenza, split virus, quadrivalent, preservative 8 [facility] 13:30:16 COVID-19, mRNA, LNP-S, PF, 30 mcg/0.3 mL dose 1 completed Lucita Martinez [facility] 08/04/2022 08:41:41 COVID-19, mRNA, LNP-S, PF, 30 mcg/0.3 mL dose 1 completed Lucita Martinez [facility] 08/04/2022 08:41:48 COVID-19, mRNA, LNP-S, PF, 50 mcg/0.5 mL dose 2 completed Lucita Martinez [facility] 08/04/2022 08:42:54 influenza, unspecified formulation 1 completed Lucita Martinez [facility] 08/04/2022 08:43:12 influenza, unspecified formulation 2 completed Lucita Martinez [facility] 08/04/2022 08:43:20 SARS-COV-2 (COVID-19) vaccine, UNSPECIFIED 3 completed Sary Borjas [facility] 03/13/2023 08:30:31 Td(adult) unspecified formulation 8 completed Margot Gama [facility] 11/01/2018 16:11:58 Influenza, split virus, quadrivalent, preservative 9 completed ABHISHEK Mercedes [address] [facility] [place], [address], [facility] [place] 05/07/2019 15:19:17 Past Encounters Encounter ID Performer Location Encounter Start Date Encounter Closed Date Diagnosis/Indication Diagnosis SNOMED-CT Code Diagnosis ICD10 Code [id number] MALIK CRAWFORD [facility] [address] [facility] [address] 04/21/2024 09:58:32 04/21/2024 16:48:45 Attention deficit hyperactivity disorder 859586534 F90.0 Fatigue 82050131 R53.83 [id number] MALIK CRAWFORD [facility] [address] [place] [address],[place] [address] 05/07/2024 09:42:46 05/07/2024 10:51:36 Hypokalemia 01910444 E87.6 Attention deficit hyperactivity disorder 033071799 F90.0 Hypertensi ve emergency 5658127599 39570 I16.1 Health Concerns Section Related Observation LastModified by Organization Detai ls LastModified Time None Recorded Concern Status LastModified by Organization Details LastModified Time None Recorded Payers Encounter Date Sequence Insurance Name Policy Number Policy Quan Covered Member ID Quan Member ID Guarantor Name 05/07/2024 1 [place] [id number] Priscilla Ames [id number] [address] Ames Notes Date Note Type Note Provider Name a ct Address Organization Details Recorded Time 4 text/html [...] fixed the prazosin script MALIK CRAWFORD [address] [facility], [place], [address], [facility] 05/07/2024 10:36:58
--- OUTSIDE RECORDS SUMMARY | 2024-06-06 16:12 | XMS_ITS | Continuity of Care Document ---
Author Organization [place] - [facility], [facility] Address [address] [place] [address] Assessment No assessment recorded. Plan of Treatment Reminders Order Date Submit Date Provider Last Modified By Organization Details Last Modified Time Details Appointments FOLLOW UP 15 2024 04:15P MALIK BLOOM Not available Not available Not available Lab RPR (rapid plasma reagin), serum 2023 [facility], [address] [place] [address], [address], 05/19/2024 15:25:15 HIV 1+2 AB + HIV 1 p24 Ag, qualitati ve immunoass ay, serum 2023 [facility], [address] [place] [address], [place], [address], 05/19/2024 15:25:15 CT + NG + TV, DNA, urine/swa b 2023 [facility], [address] [place] [address], [place], [address], 05/19/2024 15:25:15 hepatitis panel (A+B+C), acute, serum 2023 [facility], [address] [place] [address], [address], 05/19/2024 15:25:15 BMP, serum or plasma 2023 [facility], [address] [facility], [place], [address], 05/26/2024 11:25:14 magnesium , serum or plasma 2023 [facility], [address] [facility], [place], [address], 05/19/2024 15:25:15 Referral None recorded. Procedures None recorded. Surgeries None recorded. Imaging None recorded. Medication Orders potassium chloride ER 20 mEq tablet,ex tended release 2023 [id number], [address], [place], [address], 05/19/2024 15:24:01 Patient TargetsNo targets recorded. Patient InstructionsNo instructions recorded. Reason for Referral None Reported. Problems Name Problem SNOMED Code Status Onset Date Resolution Date Notes Provider Name and Address Organization Details Recorded Time History of depressi on 842927651 Active 2017 Depressiv e episode 1613-4788 Not Available [facility] 3 14:13:30 Meningit is 2468254 Active 2017 Not Available [facility] 3 14:13:31 Concussi on injury of brain 066356940 Active 2017, 1994 Not Available [facility] 3 14:13:30 Varicell a 99510099 Active 2017 Not Available [facility] 3 14:13:30 Migraine 08837855 Active 2017 Not Available [facility] 3 14:13:30 Exercise -induced asthma 73169711 Active 2017 Not Available [facility] 3 14:13:30 Seasonal affectiv e disorder 404854187 Active 2017 Not Available [facility] 3 14:13:30 Attentio n deficit hyperact ivity disorder 178570344 Active 2017 Not Available [facility] 3 14:13:31 Disorder of vision 44190722 Active 2017 corrected vision Not Available [facility] 3 14:13:31 Anxiety 46775990 Active 2017 Flight Not Available [facility] 3 14:13:31 Impaired fasting glycemia 341965742 Active 2017 Not Available [facility] 3 14:13:31 Essentia l hyperten jil 79089905 Active 2017 Not Available [facility] 3 14:13:31 Hyperlip idemia 99870332 Active 2017 Not Available [facility] 3 14:13:31 Sleep apnea 89959797 Active 2017 Not Available [facility] 3 14:13:31 Kidney stone 10308777 Active 2021 Not Available [facility] 3 14:13:31 Impetigo 95982052 Active 2022 Not Available [facility] 3 14:13:31 Hyperten sive urgency 456115453 Active 2022 Not Available [facility] 3 14:13:31 Dysuria 84492271 Active 2023 MALIK CRAWFORD [address] [place], [address], [facility] 4 15:37:51 Agorapho manjula 72136976 Active 2023 MALIK CRAWFORD [address] [place], [address], [facility] 4 15:56:51 Erectile dysfunct ion 138514298 Active 2023 MALIK CRAWFORD [address] [place], [address], [facility] 4 15:58:57 Hyperten sive emergenc y 47824885027 9104 Active 2023 MALIK CRAWFORD [address] [place], [address], [facility] 4 09:49:44 Resistan t hyperten sive disorder 00397366478 4109 Active 2023 MALIK CRAWFORD [address] [place], [address], [facility] 4 11:20:24 Fatigue 88002001 Active 2023 MALIK CRAWFORD [address] [place], [address], [facility] 16:17:42 Hypokale reina 26213673 Active 2023 MALIK CRAWFORD [address] [place], [place], , [facility] 12:32:58 Problem Notes None recorded. Medical Equipment None Reported. Allergies Allergen ID Allergen Name Allergen Category Reaction Reaction Severity Criticality Documentation Date Start Date Code Code System Note Provider Name and Address Organization Details Recorded Time 8029 spironola ctone medicatio n Not available Not available Not available 10/16/2023 9997 RxNorm MALIK CRAWFORD [address] [place], [address], [facility] 4 10:58:37 8030 labetalol medicatio n Not available Not available Not available 10/16/2023 6185 RxNorm MALIK CRAWFORD [address] [place], [address], [facility] 10:58:43 8531 vortioxet ine hydrobrom elder medicatio n Not available Not available Not available 04/21/2024 00523 34 RxNorm MALIK CRAWFORD [address] [place], [address], [facility] 16:16:32 Medications Name Sig Start Date Stop [...] Updated DateTime 4 175.9 cm 39.6 kg/m2 162633. 94 g 80 /min 97 % 97 % 110 mm[Hg] 80 mm[Hg] Mesha Cooley [facility] 4 14:59:07 Social History Question Answer Notes LastModified by Organizat ion Details LastModified Time Tobacco Smoking Status Former Smoker Not Available [facility] 04/06/2020 03:36:23 What Was The Date Of Your Most Recent Tobacco Screening? 05/26/2024 [email or web address] Information not available 05/26/2024 How Many Years Have You Smoked Tobacco? 15 [id number] Information not available 04/06/2020 Do You Or Have You Ever Used Any Other Forms Of Tobacco Or Nicotine? No [email or web address] Information not available 01/08/2023 Sex: Unknown Functional [...] mcg/0.3 mL dose 1 completed MALIK CRAWFORD [address] [place] [address], [address], [facility] 02/04/2021 08:56:11 Influenza, split virus, quadrivalent, preservative 8 completed Margot quiñones [facility] 02/20/2018 13:30:16 COVID-19, mRNA, LNP-S, PF, 30 mcg/0.3 mL dose 1 completed Lucita Martinez [facility] 08/04/2022 08:41:41 COVID-19, mRNA, LNP-S, PF, 30 mcg/0.3 mL dose 1 [facility]04[facility] 08:41:48 COVID-19, mRNA, LNP-S, PF, 50 mcg/0.5 mL dose 2 completed Lucita Martinez [facility] 08/04/2022 08:42:54 influenza, unspecified formulation 1 completed Lucita Martinez [facility] 08/04/2022 08:43:12 influenza, unspecified formulation 2 completed Lucita Martinez [facility] 08/04/2022 08:43:20 SARS-COV-2 (COVID-19) vaccine, UNSPECIFIED 3 completed Sary Borjas [facility] 03/13/2023 08:30:31 Td(adult) unspecified formulation 8 completed Margot Gama [facility] 11/01/2018 16:11:58 Influenza, split virus, quadrivalent, preservative 9 completed Gema Claudio [address], [address], [facility] 05/07/2019 15:19:17 Past Encounters Encounter ID Performer Location Encounter Start Date Encounter Closed Date Diagnosis/Indication Diagnosis SNOMED-CT Code Diagnosis ICD10 Code [id number] MALIK CRAWFORD [facility] [address] [place] [address],[place] [address] 04/21/2024 09:58:32 04/21/2024 16:48:45 Attention deficit hyperactivity disorder 948704359 F90.0 [facility] 64392252 R53.83 [id number] MALIK CRAWFORD [facility] [address] [place] [address],[place] [address] 05/07/2024 09:42:46 05/07/2024 10:51:36 Hypokalemia 20798460 E87.6 Attention deficit hyperactivity disorder 055176088 F90.0 Hypertensi ve emergency 6327122912 77881 I16.1 [id number] MALIK CRAWFORD [facility] [address] [facility],[place] [address] 05/19/2024 14:36:44 05/19/2024 15:33:28 Hypokalemia 37765991 E87.6 Venereal d isease screening 633949883 Z11.3 Essential hypertension 30481923 I10 Health Concerns Section Related Observation LastModified by Organization Detai ls LastModified Time None Recorded Concern Status LastModified by Organization Details LastModified Time None Recorded Payers Encounter Date Sequence Insurance Name Policy Number Policy Quan Covered Member ID Quan Member ID Guarantor Name 05/19/2024 1 [place] [id number] Priscilla Ames [id number] Jose Ames Notes Date Note Type [...] will jump up again MALIK CRAWFORD [address] [facility], [place], [address], [facility] 05/19/2024 15:30:26
--- OUTSIDE RECORDS SUMMARY | 2024-06-06 16:12 | XMS_ITS | Continuity of Care Document ---
Author Organization [facility], [facility] Address [address] [place] [address] Assessment Encounter Date Assessment Date Assessment LastModified [...] vitamin D, 25-hydro xy, total, serum 2023 [facility], [address] [place] [address], [address], 05/02/2024 08:46:45 vitamin B12 + folate, serum or blood 2023 024 [facility], [address] [place] [address], [address], 05/02/2024 08:46:45 iron + TIBC + ferritin , serum 2023 024 [facility], [address] [place] [address], [id number], 04/21/2024 16:19:58 CMP, serum or plasma 2023 024 [facility], [address] [place] [address], [address], 05/02/2024 08:46:45 CBC w/ auto diff 2023 [facility], [address] [place] [address], [id number], 04/21/2024 16:19:59 TSH + free T4, serum 2023 [facility], [address] [place] [address], [address], 05/02/2024 08:46:45 Referral None recorded . Procedures None recorded . Surgeries None recorded . Imaging None recorded . Medication Orders dextroam phetamin e-amphet amine 10 mg tablet 2023 [id number], [address] [place], [address], 04/21/2024 16:17:34 Patient TargetsNo targets recorded. Patient InstructionsNo instructions recorded. Reason for Referral None Reported. 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, 1994 Not Available [facility] 3 14:13:30 Varicell a 82948025 Active 2017 Not Available [facility] 14:13:30 Migraine 79365384 Active 2017 Not Available [facility] 14:13:30 Exercise -induced asthma 02666088 Active 2017 Not Available [facility] 14:13:30 Seasonal affectiv e disorder 038010293 Active 2017 Not Available [facility] 14:13:30 Attentio n deficit hyperact ivity disorder 670944958 Active 2017 Not Available [facility] 3 14:13:31 Disorder of vision 88490398 Active 2017 corrected vision Not Available [facility] 3 14:13:31 Anxiety 39796842 Active 2017 Flight Not Available [facility] 3 14:13:31 Impaired fasting glycemia 533299242 Active 2017 Not Available [facility] 3 14:13:31 Essentia l hyperten jil 35811299 Active 2017 Not Available [facility] 3 14:13:31 Hyperlip idemia 24062370 Active 2017 Not Available [facility] 3 14:13:31 Sleep apnea 85393788 Active 2017 Not Available [facility] 3 14:13:31 Kidney stone 52057694 Active 2021 Not Available [facility] 3 14:13:31 Impetigo 01468874 Active 2022 Not Available [facility] 3 14:13:31 Hyperten sive urgency 392038089 Active 2022 Not Available [facility] 3 14:13:31 Dysuria 67550577 Active 2023 MALIK CRAWFORD [address] [place], [address], [facility] 4 15:37:51 Agorapho manjula 76540737 Active 2023 MALIK CRAWFORD [address] [place], [address], [facility] 4 15:56:51 Erectile dysfunct ion 367568753 Active 2023 MALIK CRAWFORD [address] [place], [address], [facility] 4 15:58:57 Hyperten sive emergenc y 58531438093 9104 Active 2023 MALIK CRAWFORD [address] [place], [address], [facility] 4 09:49:44 Resistan t hyperten sive disorder 85951463965 4109 Active 2023 MALIK CRAWFORD [address] [place], [address], [facility] 4 11:20:24 Fatigue 94296155 Active 2023 MALIK CRAWFORD [address] [place], [address], [facility] 4 16:17:42 Hypokale reina 33442224 Active 2023 MALIK CRAWFORD [address] [place] [address], [address], [facility] 4 12:32:58 Problem Notes None recorded. Medical Equipment None Reported. Allergies Allergen ID Allergen Name Allergen Category Reaction Reaction Severity Criticality Documentation Date Start Date Code Code System Note Provider Name and Address Organization Details Recorded Time 8029 spironola ctone medicatio n Not available Not available Not available 10/16/2023 9997 RxNorm MALIK CRAWFORD [address] [place] [address], [address], [facility] 4 10:58:37 8030 labetalol medicatio n Not available Not available Not available 10/16/2023 6185 RxNorm MALIK CRAWFORD [address] [place] [address], [address], [facility] 4 10:58:43 8531 vortioxet ine hydrobrom elder medicatio n Not available Not available Not available 04/21/2024 95608 34 RxNorm MALIK CRAWFORD [address] [place] [address], [address], [facility] 4 16:16:32 Medications Name Sig [...] Available Not Available Not Available Flucelvax Quad 9732-9773 (PF) 60 mcg (15 mcg x 4)/0.5 [...] Of Your Most Recent Tobacco Screening? 05/26/2024 [email or web address] Information not available 05/26/2024 How Many Years Have You Smoked Tobacco? 15 [id number] Information not available 04/06/2020 Do You Or Have You Ever Used Any Other Forms Of Tobacco Or Nicotine? No [email or web address] Information not available 01/08/2023 Sex: Unknown Functional [...] mcg/0.3 mL dose 1 completed MALIK CRAWFORD [address] [place] [address], [address], [facility] 02/04/2021 08:56:11 Influenza, split virus, quadrivalent, preservative 8 completed Margot quiñones [facility] 02/20/2018 13:30:16 COVID-19, mRNA, LNP-S, PF, 30 mcg/0.3 mL dose 1 completed Lucita quiñones [facility] 08/04/2022 08:41:41 COVID-19, mRNA, LNP-S, PF, 30 mcg/0.3 mL dose 1 completed Lucita quiñones [facility] 08/04/2022 08:41:48 COVID-19, mRNA, LNP-S, PF, 50 mcg/0.5 mL dose 2 completed Lucita Martinez [facility] 08/04/2022 08:42:54 influenza, unspecified formulation 1 completed Lucita Martinez [facility] 08/04/2022 08:43:12 influenza, unspecified formulation 2 completed Lucita Martinez [facility] 08/04/2022 08:43:20 SARS-COV-2 (COVID-19) vaccine, UNSPECIFIED 3 completed Sary Borjas [facility] 03/13/2023 08:30:31 Td(adult) unspecified formulation 8 completed Margot Gama [facility] 11/01/2018 16:11:58 Influenza, split virus, quadrivalent, preservative 9 completed September ABHISHEK Snyder [address] [place], [address], [facility] 05/07/2019 15:19:17 Past Encounters Encounter ID Performer Location Encounter Start Date Encounter Closed Date Diagnosis/Indication Diagnosis SNOMED-CT Code Diagnosis ICD10 Code [id number] ENEDINA MCLAIN [facility] [address] [facility],[place] [address] 04/21/2024 09:58:32 04/21/2024 16:48:45 Attention deficit hyperactivity disorder 669224909 F90.0 Fatigue 07085936 R53.83 Health Concerns Section Related Observation LastModified by Organization Detai ls LastModified Time None Recorded Concern Status LastModified by Organization Details LastModified Time None Recorded Payers Encounter Date Sequence Insurance Name Policy Number Policy Quan Covered Member ID Quan Member ID Guarantor Name 04/21/2024 1 [place] [id number] Priscilla Ames [id number] Jose Ames Notes Date Note Type Note Provider Name a wa Address Organization Details Recorded Time 04/21/2024 text/html follow-up The patient is participating in this appointment via telemedicine communication with a phone call/video calling service ([employer])The patient consents to use of these platforms [...] symptoms on and off before with low B77iamr recheck levels will start on adderall for the ADHD symptoms, monitor BP, buproprion could have triggered to BP issues so would like to avoid restarting that and trial an alternative has been having hypotensive episodes here and there, BP has been excellent, most all readings are <120/80 MALIK CRAWFORD [address] [place] [address], [place], [address], [facility] 04/21/2024 16:24:32
[2024-06-07 03:40] LABS: Syphilis Screen Nonreactive (Nonreactive)
[2024-06-07 04:18] LABS: HBS Num1 6.48 mIU/mL (0-7.99); HBc Num1 0.11 S/CO (0.00-0.79); HBsAGNum1 0.32 S/CO (0.00-0.99); HIV AB/AG Nonreactive (Nonreactive); HIV Num 1 0.05 S/CO (0.00-0.99); Hepatitis A Antibody IgM 0.14 Index (0-0.79); Hepatitis B Core Antibody Nonreactive (Nonreactive); Hepatitis B Surface Antigen Negative (Negative); ~HepC Num1 0.12 S/CO (0.00-0.79); ~Hepatitis A Antibody IgM Nonreactive (Nonreactive); ~Hepatitis B Surface Antibody NONREACTIVE (Nonreactive); ~Hepatitis C Antibody Nonreactive (Nonreactive)
== END 2024-06-06 14:51 | disposition home or self-care (01) ==
LOC: HO.LAB 14:50
PROVIDERS: PCP Internal Medicine; Visit Provider Physician Assistant
DX: E87.6 Hypokalemia (principal); Z11.3 Encounter for screening for infections with a predominantly sexual mode of transmission
CPT/HCPCS: 80048; 83735; 86704; 86706; 86709; 86780; 86803; 87340; 87389

== ENCOUNTER 2025-02-17 14:47 | Outpatient (REF) | payer BC, SELFPAY ==
--- NOTE | ~2025-02-17 | XR_ITS ---
EXAMINATION: XR LUMBAR SPINE 2-3 VIEWS HISTORY: Acute midline low back pain with left-sided sciatica COMPARISON: There are no prior studies for comparison. FINDINGS: AP, lateral, and coned down views of the lumbar spine are submitted. Osseous mineralization is normal. Five nonrib-bearing lumbar vertebral bodies are identified, maintaining normal height and alignment without evidence of fracture or spondylolisthesis. There is mild degenerative disc disease with anterior spurring at multiple levels and mild disc space narrowing at L1-2. The posterior elements are intact. The visualized paraspinal soft tissues are unremarkable. XR/XR lumbar spine 2-3V IMPRESSION: Mild degenerative disc disease. Electronically signed by: Kwaku Mueller MD 02/17/2025 03:28 PM EDT
--- NOTE | ~2025-02-17 | XR_ITS ---
EXAMINATION: XR CERVICAL SPINE CLINICAL INFORMATION: Cervical Radiculopathy COMPARISON: None available. TECHNIQUE: 5 views of the cervical spine were obtained, including bilateral oblique views. FINDINGS: There is a minimal levoconvex scoliosis, possibly positional. There is a normal cervical lordosis. There is no subluxation. The craniocervical junction and C1-2 articulation are intact and aligned. There is no fracture, compression deformity, or suspicious bone lesion. There is normal facet alignment bilaterally. Mild disc degeneration present spanning C4-C7. Oblique views demonstrate mild right greater than left neural foraminal narrowing at C3-4. Neural foramina are otherwise widely patent. There is no evidence of prevertebral soft tissue abnormality. Imaged lung apices are clear. XR/XR cervical spine 5V IMPRESSION: 1. No acute bony abnormality of the cervical spine. 2. Mild degenerative spondylosis spanning C4-C7. Electronically signed by: Florencio Pepper MD 02/17/2025 03:31 PM EDT
--- OUTSIDE RECORDS SUMMARY | 2025-02-17 18:32 | XMS_ITS | Clinical Summary ---
Author Organization [facility] Address [address] [facility] [address] [place] [id number] Phone Care Team Providers Care Water Hauler Name Role Phone Serge Moran DO Unavailable LupeSerge lam DO Primary Care Provider [phone] Allergies No known active allergies Medications cetirizine (ZYRTEC) 10 mg capsule daily. Active LORazepam (ATIVAN) 2 MG tabletIndicati ons:prn before flying Indications: prn before flying Active valsartan (DIOVAN) 40 MG tablet 1 Active zinc-vit C-pyridoxine, vit B6, 12-60-0.5 mg Lozg zinc Active ID-nirmatrelvi r-ritonavir <emergency use auth> (PAXLOVID, EUA,) 300 mg (150 mg x 2)-100 mg tablets Paxlovid 300 mg (150 mg x 2)-100 mg tablets in a dose pack (EUA) TAKE 3 TABLETS BY MOUTH TWICE A DAY Active buPROPion (WELLBUTRIN XL) 150 MG ER 24 hr tablet Take 150 mg by mouth daily. 2 Active prazosin (MINIPRESS) 1 MG capsule TAKE 1 CAPSULE BY MOUTH 5 TIMES A DAY 5 Active tadalafiL (CIALIS) 20 MG tablet Take 1 tablet by mouth every morning. 5 Active omega 8-tfr-tbh-fish oil 1,000 mg (120 mg-180 mg) Cap Fish Oil 1,000 mg (120 mg-180 mg) capsule 02/04/20 25 Discontinue d(No longer taking) omega-3s/dha/e pa/fish oil/D3 (VITAMIN-D + OMEGA-3 ORAL) Vitamin D 02/04/20 25 Discontinue d(No longer taking) buPROPion (WELLBUTRIN) 75 MG immediate release tablet bupropion HCl 75 mg tablet TAKE 1 TABLET BY MOUTH EVERY DAY FOR 30 DAYS 02/04/20 25 Discontinue d(Duplicate order) predniSONE (DELTASONE) 10 MG tablet Take 2 tablets (20 mg total) by mouth daily for 5 days. 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 Sleep apnea 02/26/2018 Anxiety 02/25/2018 Attention deficit hyperactivity disorder 018 Exercise-induced asthma 02/25/2018 Essential hypertension 02/25/2018 Hyperlipidemia 02/25/2018 Impaired fasting glucose 02/25/2018 Seasonal affective disorder 02/25/2018 Migraine 02/25/2018 Encounters Date Type Department Care Team Description 02/03/2025 6:20 PM EDT Office Visit [facility] [address] [address] Allison Mireles, DIRECTOR REGULATORY AFFAIRS Allergic contact dermatitis due to plant (Primary Dx) from Last 3 Months Immunizations Immunization Administration Dates Next Due INFLUENZA, SPLIT VIRUS, TRIVALENT W/ PRESERVATIV E IM 04/19/2016 Influenza Quadrivalent MDCK Preservative Free IM 03/03/2019 Influenza Quadrivalent w/ Preservative IM 2018,02/19/2018 Td, unspecified formulation 07/24/2017 Social History Tobacco Use Types Packs/Day Years Used Date Smoking Tobacco: Former Smokeless Tobacco: Never Tobacco Cessation:Counseling Given: Not Answered Education Answer Date Recorded Are you interested in more education? Not on oscar e 09/29/2022 Are you concerned about learning? Not on file 09/29/2022 No 09/29/2022 No 09/29/2022 Digital Access Answer Date Recorded No 10/28/2022 No 10/28/2022 Reliable internet access at home? Not on file 10/28/2022 Device with a working camera? Not on file Sex and Gender Information Value Date Recorded Sex Assigned at Not on file Legal Sex Male 10:28 PM EDT Gender Identity Not on file Sexual Orientation Not on file Last Filed Vital Signs Vital Sign Reading Time Taken Comments Blood Pressure 164/104 02/03/2025 6:39 PM EDT Pulse 88 02/03/2025 6:27 PM EDT Temperature 36.8 C (98.3 F) 02/03/2025 6:27 PM EDT Respiratory Rate 18 02/03/2025 6:27 PM EDT Oxygen Saturation 96% 02/03/2025 6:27 PM EDT Inhaled Oxygen Concentration - - Weight 124.7 kg (275 lb) 02/03/2025 6:27 PM EDT Height 177.8 cm (5' 10 ) 05/30/2021 4:37 PM EST Body Mass Index 39.46 05/30/2021 4:37 PM EST Plan of Treatment Health Maintenance Due Date Last Done Comments DEPRESSION SCREENING 1994 SMOKING Hx and SMOKELESS TOBACCO SCREENING 10/22/1995 HEPATITIS C SCREENING 2000 HIV ONE-TIME SCREENING (18-65 YEARS) 2000 PNEUMOCOCCAL VACCINES (0-49 years) (1 of 2 - PCV) 2001 CREATININE LEVEL 03/05/2019 03/05/2018 POTASSIUM LEVEL 03/05/2019 03/05/2018 SCREENING FOR DIABETES 11/02/2021 11/02/2018, 2017 INFLUENZA VACCINE (#1) 2025 , 02/21/2023, 02/20/2022, Additional history exists BLOOD PRESSURE 08/03/2025 02/03/2025 LIPID PANEL 08/24/2028 08/25/2023, 07/06, 08/01/2022 Adult Td,Tdap Booster 02/21/2033 02/21/2023 , 07/24/2017, 07/24/2017, Additional history exists COVID-19 VACCINE Completed 03/14/2024, 10/2022, 02/20/2022, Additional history exists HEPATITIS A VACCINES Aged Out No long er eligible based on patient's age to complete this topic HIB VACCINES Aged Out No longer eligi ble based on patient's age to complete this topic MENINGOCOCCAL VACCINES (ACWY) Aged Out No longer eligible based on patient's age to complete this topic MENINGOCOCCAL VACCINES (B) Aged Out N o longer eligible based on patient's age to complete this topic Medical Devices Not on file Procedures Procedure Name Priority Date/Time Associated Diagnosis Comments RENAL PANEL Routine 03/05/2018 12:21 PM EDT Stem cell donor from Last 3 Months or Most Recently Relevant to Health Maintenance Results * Renal panel (03/05/2018 12:21 PM EDT) SODIUM 139 135 - 145 mmol/L [facility] POTASSIUM 3.7 3.4 - 5.0 mmol/L [facility] CHLORIDE 101 98 - 108 mmol/L [facility] CO2 26 23 - 32 mmol/L [facility] BUN 14 8 - 25 mg/dL [facility] CREATININE 1.07 0.60 - 1.50 mg/dL [facility] GLUCOSE 98 70 - 110 mg/dL [facility] CALCIUM 9.6 8.5 - 10.5 mg/dL [facility] PHOSPHORUS 3.4 2.6 - 4.5 mg/dL [facility] ALBUMIN 4.7 3.3 - 5.0 g/dL [facility] EGFR 89 >59 mL/min/1.7 3m2 [facility] Comment:If patient is black, multiply result by 1.159. Estimated glomerular filtration rate calculated using the CKD-EPI equation. ANION GAP 12 3 - 17 mmol/L [facility] 03/05/2018 12:2 1 PM EDT 03/05/2018 12:52 PM EDT Santosh Kenney MD LAB BLOOD ORDERABLES F inal Result [facility] [address] [place] [address] from Last 3 Months or Most Recently Relevant to Health Maintenance [place] [address] [place] [address] [place] [address] [place] [address] [place] [address] [place] [address] [place] [address] PPO EPO [facility] [address] [address] [place] [address] [place] [address] [place] [address] PPO EPO Care Teams Water Hauler Relationship Specialty Start Date End Date Serge Moran DO [address] [place] [address] PCP - General Internal Medicine 02/03/25 LuisaSerge DO [address] [place] [address] [email or web address] Insurance Assigned Provider 09/08/23 Additional Source Comments The information contained in this document represents components of the legal health record. It is not the complete legal health record.[facility]
== END 2025-02-17 14:48 | disposition home or self-care (01) ==
LOC: HO.XRAY 14:47
PROVIDERS: PCP Internal Medicine; Visit Provider Physician Assistant
DX: M54.42 Lumbago with sciatica, left side (principal); M54.12 Radiculopathy, cervical region
CPT/HCPCS: 72050; 72100

== ENCOUNTER → 2025-02-17 15:17 | Outpatient (BNV) | payer BC, SELFPAY | PROVIDERS: PCP Internal Medicine; Visit Provider Radiology Diagnostic Radiology | DX: M54.12 Radiculopathy, cervical region (principal); M54.42 Lumbago with sciatica, left side | CPT/HCPCS: 72050; 72100 ==